=== PATIENT | female | born 1940 | race Caucasian/White ===

== ENCOUNTER 2016-06-23 12:14 | Emergency (ER) | payer MEDICARE, MEDICAID ==
[2016-06-23 12:34] VITALS: BP 153/53
--- NOTE | 2016-06-23 12:40 | ER Document Report ---
ED Medical Screen (RME) - General Stated Complaint: HAND PAIN Notes: 75 yo female c/o bilat hand pain with blisters since this morning. denies any injury. no fever TRAVEL OUTSIDE OF THE [place] IN LAST 30 DAYS: No - Related Data Allergies/Adverse Reactions: lisinopril [Lisinopril] Allergy (Verified 03/23/14 16:49) Penicillins Allergy (Verified 03/23/14 16:49) unknown Past Medical History - Past Medical History Cardiac Medical History: Reports: Hx Hypertension Denies: Hx Atrial Fibrillation, Hx Congestive Heart Failure, Hx Coronary Artery Disease, Hx DVT, Hx Heart Attack, Hx Hypercholesterolemia, Hx Peripheral Vascular Disease, Hx Pulmonary Embolism Pulmonary Medical History: Reports: Hx COPD Denies: Hx Asthma, Hx Bronchitis, Hx Pneumonia Neurological Medical History: Denies: Hx Cerebrovascular Accident, Hx Seizures Malignancy Medical History: Reports: Hx Breast Cancer Musculoskeltal Medical History: Denies Hx Arthritis Psychiatric Medical History: Reports: Hx Depression, Hx Schizophrenia Past Surgical History: Reports: Hx Bowel Surgery - umbilical hernia, Hx Breast Surgery, Hx Herniorrhaphy. Denies: Hx Pacemaker - Immunizations Hx Diphtheria, Pertussis, Tetanus Vaccination: - unknown Physical Exam - Vital signs Vitals: Temp Pulse Resp BP Pulse Ox 98.1 F 60 20 153/53 H 92 06/23/16 12:33 06/23/16 12:06/23/16 12:06/23/16 12:06/23/16 12:33 Course - Vital Signs Vital signs: Temp Pulse Resp BP Pulse Ox 98.1 F 60 20 153/53 H 92 06/23/16 12:33 06/23/16 12:33 06/23/16 12:33 06/23/16 12:33 06/23/16 12:33
--- NOTE | 2016-06-23 14:29 | ER Document Report ---
ED General - General Chief Complaint: Hand Pain Stated Complaint: HAND PAIN Time seen by provider: 14:15 Mode of Arrival: Wheelchair Information source: Patient Notes: 25-year-old female states she's had 2 day history of painful blisters to both hands. She reports she had blisters to the left hand several days ago that she opened and has small amount of bleeding from the. She does not recall any new medicines doesn't recall having symptoms like this before. She denies fever, chills, nausea, vomiting, cough, shortness of breath worse than baseline, or syncope. She reports chronic problems with pain and swelling to both legs which she has wraps in place says she's had no recent problems with those. She does not recall being bitten by anything. Physical Exam: General: Alert, appears well. HEENT: Normocephalic. Atraumatic. PERRLA. Extraocular movements intact. Oropharynx clear. Neck: Supple. Non-tender. No JVD Respiratory: No respiratory distress. Clear and equal breath sounds bilaterally. Cardiovascular: Regular rate and rhythm. Abdominal: Normal Inspection. Soft, non-tender. No distension. Normal Bowel Sounds. Back: Non-tender. No deformity or step off. Extremities: Dry dressing is in place to both legs. Upper extremities are warm with 2+ pulses. She has 3 areas of what appear to be popped blisters with superficial eschar each about 1 cm across the palm of her left hand. She has 1 intact blister with clear fluid to the ulnar side of her left hand. She has 2 blisters each about a centimeter across with clear fluid to the radial and ulnar sides of the right hand. There is an area of faint superficial erythema to the ulnar side of the right wrist. Patient has 2+ radial ulnar pulses to both hands with brisk capillary refill and no cyanosis. She is able to demonstrate good range of motion elbow shoulders and wrists and both upper extremities. Neurological: Mentating clearly answers questions appropriately slightly dysarthric Psychological: Normal affect. Normal Mood. Skin: Warm. Dry. 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 She has scattered areas of erythema with dry eschars in place on the posterior portion of the right shoulder and upper arm in a dermatomal pattern. TRAVEL OUTSIDE OF THE [place] IN LAST 30 DAYS: No - Related Data Allergies/Adverse Reactions: lisinopril [Lisinopril] Allergy (Verified 06/23/16 12:39) Penicillins Allergy (Verified 06/23/16 12:39) unknown Past Medical History - Social History Smoking Status: Never Smoker Chew tobacco use (# tins/day): No Frequency of alcohol use: None Drug Abuse: None Family History: None Patient has suicidal ideation: No Patient has homicidal ideation: No - Past Medical History Cardiac Medical History: Reports: Hx Hypertension Denies: Hx Atrial Fibrillation, Hx Congestive Heart Failure, Hx Coronary Artery Disease, Hx DVT, Hx Heart Attack, Hx Hypercholesterolemia, Hx Peripheral Vascular Disease, Hx Pulmonary Embolism Pulmonary Medical History: Reports: Hx COPD Denies: Hx Asthma, Hx Bronchitis, Hx Pneumonia Neurological Medical History: Denies: Hx Cerebrovascular Accident, Hx Seizures Renal/ Medical History: Denies: Hx Peritoneal Dialysis Malignancy Medical History: Reports: Hx Breast Cancer Musculoskeltal Medical History: Denies Hx Arthritis Psychiatric Medical History: Reports: Hx Depression, Hx Schizophrenia Past Surgical History: Reports: Hx Bowel Surgery - umbilical hernia, Hx Breast Surgery, Hx Herniorrhaphy. Denies: Hx Pacemaker - Immunizations Hx Diphtheria, Pertussis, Tetanus Vaccination: - unknown Review of Systems - Review of Systems Constitutional: denies: Chills, Fever EENT: denies: Ear pain, Throat pain Cardiovascular: denies: Chest pain Respiratory: denies: Cough, Short of breath Gastrointestinal: denies: Abdominal pain, Nausea, Vomiting Genitourinary: denies: Burning, Dysuria Female Genitourinary: Post menopausal Musculoskeletal: denies: Back pain Skin: Rash Hematologic/Lymphatic: denies: Swollen glands Physical Exam - Vital signs Vitals: Temp Pulse Resp BP Pulse Ox 98.1 F 60 20 153/53 H 92 06/23/16 12:33 06/23/16 12:33 06/23/16 12:33 06/23/16 12:33 06/23/16 12:33 Course - Re-evaluation Re-evalutation: 06/23/16 14:29 Lesions the patient's right upper arm I think are suspicious for shingles. The blister seen on both hands are larger than will be customarily C was shingles and I am uncertain as to their etiology but they certainly do not appear to be related to a cellulitis or abscess or any type of vascular compromise. Motor treat patient with valacyclovir and steroid Dosepak for shingles and this may help with the blisters are hand is a related. The steroids certainly might help with this as an unspecified allergic reaction as well. Patient is otherwise nontoxic in appearance I think is safe for discharge and outpatient follow-up 06/23/16 14:34 - Vital Signs Vital signs: Temp Pulse Resp BP Pulse Ox 98.1 F 60 20 153/53 H 92 06/23/16 12:33 06/23/16 12:33 06/23/16 12:33 06/23/16 12:33 06/23/16 12:33 Discharge - Discharge Clinical Impression: Shingles Qualifiers: Herpes zoster complications: without complications Qualified Code(s): B02.9 - Zoster without complications Condition: Stable Disposition: HOME, SELF-CARE Additional Instructions: Shingles You have shingles. Shingles is caused by the chicken pox virus, The virus has been surviving dormant in a nerve cell since you had chicken pox years ago. The virus has spread down a nerve root to reach the skin. Typically, an band-like area of pain and skin sensitivity develops, then small blisters erupt in the area. Shingles lasts two or three weeks, but sometimes leaves persistent pain. You are contagious -- you can give children chicken pox. But you can't give anyone shingles. Antiviral medicines (such as acyclovir or famciclovir) can help, but the rash usually worsens for about a week. Pain medication is often given if the area hurts. Antihistamines such as Benadryl may be necessary for itching if it does not respond to soda baths and calamine lotion. Sometimes cortisone medicine or nerve-block shots are necessary if pain is severe. If the area remains severely painful as the sores heal, or if you suspect an infection developing in the sores, see your doctor. Prescriptions: Methylprednisolone [Medrol Dosepack (4 mg/Tab) 21 Tab/Dosepak] 4 mg PO ASDIR PRN #21 tab.ds.pk PRN Reason: Valacyclovir HCl [Valacyclovir] 1,000 mg PO TID #21 tablet Referrals: SCOUT ODONNELL MD [ACTIVE STAFF] - Follow up in 1 week
== END 2016-06-23 16:40 | disposition home or self-care (01) ==
LOC: ER 12:14
DX: B02.9 Zoster without complications (principal); I10 Essential (primary) hypertension; J44.9 Chronic obstructive pulmonary disease, unspecified; Z85.3 Personal history of malignant neoplasm of breast; Z88.0 Allergy status to penicillin; Z88.8 Allergy status to other drugs, medicaments and biological substances
CPT/HCPCS: 99283

== ENCOUNTER → 2016-11-10 | Outpatient (CLI) | payer MEDICARE, MEDICAID ==
--- NOTE | 2016-11-10 11:05 | WOMENS IMAGING REPORT ---
EXAM DESCRIPTION: BILAT DIAGNOSTIC MAMMO W/CAD COMPLETED DATE/TIME: 11/10/2016 10:34 am REASON FOR STUDY: HX OF BREAST CANCER; Z85.30 Z85.3 PERSONAL HISTORY OF MALIGNANT NEOPLASM OF VINEET T COMPARISON: 12/09/2015. 2010. TECHNIQUE: Bilateral CC views are obtained. Right XCC view is additionally obtained. The patient c ould not tolerate further imaging. LIMITATIONS: Only 3 images obtained, 1 image of the left breast. Very suboptimal evaluation due to patient cooperation issues. Also, the patient presumably has had priors before last year at an [place] institution, but no further information can be obtained at this time. FINDINGS: RIGHT BREAST MASSES: No mass identified. CALCIFICATIONS: Benign calcifications. ARCHITECTURAL DISTORTION: None. DEVELOPING DENSITY: None. ASYMMETRY: None noted. OTHER: No other significant findings. LEFT BREAST MASSES: No mass identified. CALCIFICATIONS: No new or suspicious calcifications. ARCHITECTURAL DISTORTION: Distortion in the deep left central breast at the operative site. Grossly unchanged but incompletely evaluated. DEVELOPING DENSITY: None. ASYMMETRY: None noted. OTHER: No other significant finding. Read with the assistance of CAD: .[facility] - R2 Cenova Version 1.3 .[facility] - R2 Cenova Version 1.3 .[facility] - R2 Cenova Version 2.4 .[facility] - R2 Cenova Version 2.4 .[facility] - R2 Taxicab Driver Version 9.2 IMPRESSION: Imaging is limited due to patient cooperation issues. Only one view of the left breast (the breast with history of malignancy) could be obtained and the operative site is only partially vi sualized. Allowing for this, no gross progression or worrisome findings. BREAST DENSITY: c. The breasts are heterogeneously dense, which may obscure small masses. BIRAD: 2 Benign findings. RECOMMENDATION: RECOMMENDED FOLLOW UP: Patient should still attempt yearly mammographic followup as tolerated. SPECIFIC INTERVENTION/IMAGING/CONSULTATION RECOMMENDED:No additional intervention/ imaging/consultati on needed at this time. COMMUNICATION:No significant abnormalities to discuss with the patient today. COMMENT: The patient has been notified of the results by letter per MQSA requirements. Additional no tification policies are in place for contacting patient with suspicious or incomplete findings. Quality ID #[id number]: The [employer] recommends an annual screening mammogram for women aged 40 years or over. This facility utilizes a reminder system to ensure that all patients receive reminder letters, and/or direct phone calls for appointments. This includes reminders for routine scr eening mammograms, diagnostic mammograms, or other Breast Imaging Interventions when appropriate. Th is patient will be placed in the appropriate reminder system. The [employer] (ACR) has developed recommendations for screening MRI of the breast s in certain patient populations, to be used in conjunction with mammography. Breast MRI surveillanc e may be appropriate for women with more than 20% lifetime risk of developing breast cancer as deter mined by genetic testing, significant family history of the disease, or history of mantle radiation f or Hodgkins Disease. ACR Practice Guidelines 2008. TECHNICAL DOCUMENTATION: FINDING NUMBER: (1) ASSESSMENT: (1) JOB ID: [id number] [employer]- All Rights Reserved
== END ==
LOC: WI 12:20
PROVIDERS: ATTEND Internal Medicine Medical Oncology
DX: N63 Unspecified lump in breast (principal)
CPT/HCPCS: 77066; G0204

== ENCOUNTER → 2017-08-29 | Outpatient (CLI) | payer MEDICARE, MEDICAID ==
--- NOTE | 2017-08-29 16:34 | RADIOLOGY REPORT (SQ) ---
EXAM DESCRIPTION: CT CHEST WITH COMPLETED DATE/TIME: 08/29/2017 3:44 pm REASON FOR STUDY: COUGH C50.919 MALIGNANT NEOPLASM OF UNSP SITE OF UNSPECIFIED FEMAL R05 COUGH COMPARISON: AP chest 03/23/2014 CT abdomen pelvis 02/04/2011 TECHNIQUE: CT scan of the chest performed using helical scanning technique with dynamic intravenous contrast injection. Images reviewed with lung, soft tissue and bone windows. Reconstructed coronal and sagittal MPR images reviewed. All images stored on PACS. All CT scanners at this facility use dose modulation, iterative reconstruction, and/or weight based d osing when appropriate to reduce radiation dose to as low as reasonably achievable (ALARA). [facility]: Dose Right [facility]: CareDose [facility]: Dose Right [facility]: Teradose 4D [facility]: [employer] CONTRAST TYPE AND DOSE: contrast/concentration: Isovue 370.00 mg/ml; Total Contrast Delivered: 80.0 ml; Total Saline Delivered: 50.3 ml RENAL FUNCTION: Creatinine 0.8 RADIATION DOSE: CT Rad equipment meets quality standard of care and radiation dose reduction techniq ues were employed. CTDIvol: 20.1 mGy. DLP: 706 mGy-cm. . LIMITATIONS: None. FINDINGS: LUNGS AND PLEURA: No opacities, nodules, masses. No pneumothorax. No effusions. HILAR AND MEDIASTINAL STRUCTURES: No identified masses or abnormal nodes. HEART AND VASCULAR STRUCTURES: No aneurysm or dissection. No central pulmonary emboli. No pericardi al effusion. Occluded proximal left subclavian artery, best shown on axial image 13. HARDWARE: None in the chest. UPPER ABDOMEN: No significant findings. Limited exam. THYROID AND OTHER SOFT TISSUES: No masses. No adenopathy. BONES: No significant finding. OTHER: No other significant finding. IMPRESSION: No CT findings to explain history of cough. Occluded proximal left subclavian artery TECHNICAL DOCUMENTATION: JOB ID: [id number] Quality ID # [id number]: Final reports with documentation of one or more dose reduction techniques (e.g., Au tomated exposure control, adjustment of the mA and/or kV according to patient size, use of iterative reconstruction technique) 2010 [employer]- All Rights Reserved Reading location - IP/workstation name: [email or web address]
== END ==
LOC: RAD 13:25
PROVIDERS: ATTEND Internal Medicine
DX: C50.919 Malignant neoplasm of unspecified site of unspecified female breast (principal); R05 Cough
CPT/HCPCS: 71260; 82565

== ENCOUNTER 2017-09-10 16:30 | Emergency (ER) | payer MEDICARE, MEDICAID ==
[2017-09-10] MEDS ORDERED: CLINDAMYCIN 600 MG/D5W RTU 600 MG/50 ML RTUPB IV ONE (18:16)
[2017-09-10 18:54] LABS: ABSOLUTE BASOPHILS # (AUTO) 0.1 10^3/uL (0.0-0.2); ABSOLUTE EOSINOPHILS # (AUTO) 0.7 10^3/uL (0.0-0.6); ABSOLUTE LYMPHOCYTES (AUTO) 1.5 10^3/uL (0.5-4.7); ABSOLUTE MONOCYTES (AUTO) 0.6 10^3/uL (0.1-1.4); ABSOLUTE NEUT (AUTO) 7.7 10^3/uL (1.7-8.2); BASOPHILS % (AUTO) 0.7 % (0-2); EOSINOPHILS % (AUTO) 6.6 % (0-6); HEMOGLOBIN 12.4 g/dL (12.0-15.5); LYMPHOCYTES % (AUTO) 13.7 % (13-45); MEAN CORPUSCULAR HEMOGLOBIN 27.3 pg (27.0-33.4); MEAN CORPUSCULAR HGB CONC 32.7 g/dL (32.0-36.0); MEAN CORPUSCULAR VOLUME 84 fl (80-97); MONOCYTES % (AUTO) 5.7 % (3-13); PLATELET COUNT 252 10^3/uL (150-450); RED BLOOD COUNT 4.55 10^6/uL (3.72-5.28); RED CELL DISTRIBUTION WIDTH 16.9 % (11.5-14.0); SEGMENTED NEUTROPHILS % (AUTO) 73.3 % (42-78); TOTAL CELLS COUNTED % (AUTO) 100 %; WHITE BLOOD COUNT 10.6 10^3/uL (4.0-10.5)
[2017-09-10 18:55] LABS: VENOUS BLOOD BASE EXCESS 5.9 mmol/L; VENOUS BLOOD HCO3 33.4 mmol/L (20-32); VENOUS BLOOD PCO2 61.6 mmHg (35-63); VENOUS BLOOD PH 7.35 (7.30-7.42)
[2017-09-10 19:19] LABS: ALANINE AMINOTRANSFERASE 28 U/L (9-52); ALBUMIN 3.9 g/dL (3.5-5.0); ALKALINE PHOSPHATASE 99 U/L (38-126); ANION GAP 8 (5-19); ASPARTATE AMINO TRANSFERASE 42 U/L (14-36); BILIRUBIN,DIRECT 0.4 mg/dL (0.0-0.4); BILIRUBIN,TOTAL 0.5 mg/dL (0.2-1.3); BLOOD UREA NITROGEN 17 mg/dL (7-20); C-REACTIVE PROTEIN 37.5 mg/L (<10.0); CALCIUM 9.3 mg/dL (8.4-10.2); CARBON DIOXIDE 33 mmol/L (22-30); CHLORIDE 99 mmol/L (98-107); CREATINE KINASE 21 U/L (30-135); GLUCOSE 112 mg/dL (75-110); TOTAL PROTEIN 7.6 g/dL (6.3-8.2)
--- NOTE | 2017-09-10 19:35 | RADIOLOGY REPORT (SQ) ---
EXAM DESCRIPTION: FOOT BILATERAL 3 VIEWS COMPLETED DATE/TIME: 09/10/2017 7:16 pm REASON FOR STUDY: blisters, possible necrotizing fasciitis COMPARISON: None. NUMBER OF VIEWS: Three views. TECHNIQUE: AP, lateral and oblique radiographic images acquired of the right and left foot. LIMITATIONS: Nonstandard radiographic positioning no soft tissue gas FINDINGS: MINERALIZATION: Diffuse osteopenia BONES: No acute fracture or dislocation. No worrisome bone lesions. JOINTS: No effusions. SOFT TISSUES: No soft tissue swelling. No foreign body. OTHER: No other significant finding. IMPRESSION: No soft tissue gas. No aggressive bony demineralization worrisome for osteomyelitis. No acute fracture TECHNICAL DOCUMENTATION: JOB ID: [id number] [employer]- All Rights Reserved Reading location - IP/workstation name: [email or web address]
--- NOTE | 2017-09-10 19:51 | ER Document Report ---
ED Extremity Problem, Lower - General Chief Complaint: Foot Pain Stated Complaint: FOOT PAIN Time Seen by Provider: 09/10/17 18:14 Notes: The patient is a 76-year-old female, past medical history CHF, presents from [facility] after her primary care physician, Dr. Toro, noticed acute onset of bilateral foot blisters worsening today. She was sent to the ER for further evaluation and treatment. Patient is having bilateral foot pain, but denies fevers, injury, numbness, tingling, drainage from the wound or any other wounds. TRAVEL OUTSIDE OF THE [place] IN LAST 30 DAYS: No - Related Data Allergies/Adverse Reactions: lisinopril [Lisinopril] Allergy (Verified 06/23/16 12:39) Penicillins Allergy (Verified 06/23/16 12:39) unknown Past Medical History - General Information source: Patient - Social History Smoking Status: Unknown if Ever Smoked Family History: None Patient has suicidal ideation: No Patient has homicidal ideation: No - Past Medical History Cardiac Medical History: Reports: Hx Hypertension Denies: Hx Atrial Fibrillation, Hx Congestive Heart Failure, Hx Coronary Artery Disease, Hx DVT, Hx Heart Attack, Hx Hypercholesterolemia, Hx Peripheral Vascular Disease, Hx Pulmonary Embolism Pulmonary Medical History: Reports: Hx COPD Denies: Hx Asthma, Hx Bronchitis, Hx Pneumonia Neurological Medical History: Denies: Hx Cerebrovascular Accident, Hx Seizures Renal/ Medical History: Denies: Hx Peritoneal Dialysis Malignancy Medical History: Reports: Hx Breast Cancer Musculoskeltal Medical History: Denies Hx Arthritis Psychiatric Medical History: Reports: Hx Depression, Hx Schizophrenia Past Surgical History: Reports: Hx Bowel Surgery - umbilical hernia, Hx Breast Surgery, Hx Herniorrhaphy. Denies: Hx Pacemaker - Immunizations Hx Diphtheria, Pertussis, Tetanus Vaccination: - unknown Review of Systems - Review of Systems Notes: REVIEW OF SYSTEMS: CONSTITUTIONAL: -fevers, -chills EENT: -eye pain, -difficulty swallowing, -nasal congestion CARDIOVASCULAR: -chest pain, -syncope. RESPIRATORY: -cough, -SOB GASTROINTESTINAL: -abdominal pain, -nausea, -vomiting, -diarrhea GENITOURINARY: -dysuria, -hematuria MUSCULOSKELETAL: -back pain, -neck pain SKIN: +B/L foot pain and blisters HEMATOLOGIC: -easy bruising or bleeding. LYMPHATIC: -swollen, enlarged glands. NEUROLOGICAL: -altered mental status or loss of consciousness, -headache, - neurologic symptoms PSYCHIATRIC: -anxiety, -depression. ALL OTHER SYSTEMS REVIEWED AND NEGATIVE. Physical Exam - Vital signs Vitals: Pulse Ox 94 09/10/17 17:02 - Notes Notes: PHYSICAL EXAMINATION: GENERAL: Well-appearing, well-nourished and in no acute distress. HEAD: Atraumatic, normocephalic. EYES: Pupils equal round and reactive to light, extraocular movements intact, sclera anicteric, conjunctiva are normal. ENT: nares patent, oropharynx clear without exudates. Moist mucous membranes. NECK: Normal range of motion, supple without lymphadenopathy LUNGS: Breath sounds clear to auscultation bilaterally and equal. No wheezes rales or rhonchi. HEART: Regular rate and rhythm without murmurs ABDOMEN: Soft, nontender, normoactive bowel sounds. No guarding, no rebound. No masses appreciated. EXTREMITIES: Strong distal pulses. NEUROLOGICAL: Cranial nerves grossly intact. Normal speech, normal gait. Normal sensory and motor exams. PSYCH: Normal mood, normal affect. SKIN: 3 cm multiple bullae over B/L lateral feet and in between right 2nd and 3rd toes. No surrounding erythema. Course - Re-evaluation Re-evalutation: Concern for necrotizing fasciitis with acute onset of bilateral foot blisters and pain that are worsening over the day. Clindamycin started in the ED due to concern. X-ray of feet do not show any soft tissue gas. Her LRINEC score is 4. 09/10/17 20:[address] Suárez. Recommending CT of the feet to assess for nec. fasc. 09/10/17 21:06 CT scan does not show any evidence of soft tissue air or infection. Patient instructed to follow-up with podiatry for further evaluation and treatment. - Vital Signs Vital signs: Temp Pulse Resp BP Pulse Ox 17 163/61 H 95 09/10/17 22:56 09/10/17 22:56 09/10/17 22:56 - Laboratory Result Diagrams: 09/10/17 18:29 09/10/17 18:29 Laboratory results interpreted by me: 09/10/17 09/10/17 09/10/17 18:29 18:29 18:29 WBC 10.6 H RDW 16.9 H Eosinophils % 6.6 H Absolute Eosinophils 0.7 H VBG HCO3 33.4 H Carbon Dioxide 33 H Glucose 112 H AST 42 H Creatine Kinase 21 L C-Reactive Protein 37.5 H - Diagnostic Test Radiology reviewed: Image reviewed, Reports reviewed Radiology results interpreted by me: B/L foot x-ray: No soft tissue gas. No aggressive bony demineralization worrisome for osteomyelitis. No acute fracture. Discharge - Discharge Clinical Impression: Blister of foot without infection Qualifiers: Encounter type: initial encounter Laterality: unspecified laterality Qualified Code(s): S90.829A - Blister (nonthermal), unspecified foot, initial encounter Condition: Stable Disposition: HOME, SELF-CARE Additional Instructions: There is no evidence of a soft tissue foot infection on your workup today. Follow-up with the foot doctor for further evaluation and treatment. Forms: Elevated Blood Pressure Referrals: SOLE HERRERA DPM [ACTIVE STAFF] - Follow up as needed
--- NOTE | 2017-09-10 21:02 | RADIOLOGY REPORT (SQ) ---
EXAM DESCRIPTION: CT LEFT LOWER EXTREMITY WITH; CT RT LOWER EXTREMITY WITH COMPLETED DATE/TIME: 09/10/2017 8:49 pm; 09/10/2017 8:50 pm REASON FOR STUDY: acute multiple foot blisters, concern for nec fasc COMPARISON: Right and left foot plain films 09/10/2017 TECHNIQUE: Axial imaging performed through the right and left foot and ankle with reformatted lr l and sagittal imaging windowed for bone and soft tissues. Images saved to PACS. 3D IMAGING: Were 3D images as MIP, SSD, or volume rendering performed at the work station? No All CT scanners at this facility use dose modulation, iterative reconstruction, and/or weight based d osing when appropriate to reduce radiation dose to as low as reasonably achievable (ALARA). [facility]: Dose Right [facility]: CareDose [facility]: Dose Right [facility]: Teradose 4D [facility]: [employer] LIMITATIONS: Right toes are cropped out of the field of view. Nonstandard radiographic positioning. RADIATION DOSE: 7.5 mGy. FINDINGS: SOFT TISSUES: Bilateral blisters over the 5th toes. Diffuse subcutaneous edema over the r ight and left lower leg and dorsal right and dorsal left foot. No soft tissue gas. BONES: No acute fracture. No dislocation. MINERALIZATION: Diffuse osteopenia OTHER: No other significant finding. IMPRESSION: Subcutaneous edema and skin blisters. No soft tissue air/gas. No acute fracture TECHNICAL DOCUMENTATION: JOB ID: [id number] Quality ID # [id number]: Final reports with documentation of one or more dose reduction techniques (e.g., Au tomated exposure control, adjustment of the mA and/or kV according to patient size, use of iterative reconstruction technique) 2010 [employer]- All Rights Reserved Reading location - IP/workstation name: [email or web address]
[2017-09-11 02:54] VITALS: BP 157/92
== END 2017-09-10 23:40 | disposition home or self-care (01) ==
LOC: ER 16:30
DX: S90.821A Blister (nonthermal), right foot, initial encounter (principal); S90.822A Blister (nonthermal), left foot, initial encounter; M79.671 Pain in right foot; M79.672 Pain in left foot; X58.XXXA Exposure to other specified factors, initial encounter; I10 Essential (primary) hypertension; J44.9 Chronic obstructive pulmonary disease, unspecified; Z88.0 Allergy status to penicillin; Z85.3 Personal history of malignant neoplasm of breast
CPT/HCPCS: 36415; 80053; 82550; 82803; 83605; 85025; 86140; 87040; 96365; 99284

== ENCOUNTER 2017-09-18 10:16 | Inpatient (IN) | payer MEDICARE, MEDICAID ==
--- NOTE | 2017-09-18 10:24 | ER Document Report ---
ED Extremity Problem, Lower - General Chief Complaint: Foot Pain Stated Complaint: FOOT PAIN Time Seen by Provider: 09/18/17 10:21 Notes: The patient is a 76-year-old female who presents with 5 days of blisters to bilateral feet. She was seen 10 days ago for this same issue and a CT scan did not show any free air and ruled out necrotizing fasciitis. She takes Eliquis daily. Patient is on doxycycline, but her blisters have worsened and she has worsening redness of her leg. She denies fevers, injury, numbness, tingling, history diabetes, drainage from the wounds or any other wounds. TRAVEL OUTSIDE OF THE [place] IN LAST 30 DAYS: No - Related Data Allergies/Adverse Reactions: lisinopril [Lisinopril] Allergy (Verified 06/23/16 12:39) Penicillins Allergy (Verified 06/23/16 12:39) unknown Past Medical History - General Information source: Patient - Social History Smoking Status: Unknown if Ever Smoked Family History: None - Past Medical History Cardiac Medical History: Reports: Hx Hypertension Denies: Hx Atrial Fibrillation, Hx Congestive Heart Failure, Hx Coronary Artery Disease, Hx DVT, Hx Heart Attack, Hx Hypercholesterolemia, Hx Peripheral Vascular Disease, Hx Pulmonary Embolism Pulmonary Medical History: Reports: Hx COPD Denies: Hx Asthma, Hx Bronchitis, Hx Pneumonia Neurological Medical History: Denies: Hx Cerebrovascular Accident, Hx Seizures Renal/ Medical History: Denies: Hx Peritoneal Dialysis Malignancy Medical History: Reports: Hx Breast Cancer Musculoskeltal Medical History: Denies Hx Arthritis Psychiatric Medical History: Reports: Hx Depression, Hx Schizophrenia Past Surgical History: Reports: Hx Bowel Surgery - umbilical hernia, Hx Breast Surgery, Hx Herniorrhaphy. Denies: Hx Pacemaker - Immunizations Hx Diphtheria, Pertussis, Tetanus Vaccination: - unknown Review of Systems - Review of Systems Notes: REVIEW OF SYSTEMS: CONSTITUTIONAL: -fevers, -chills EENT: -eye pain, -difficulty swallowing, -nasal congestion CARDIOVASCULAR: -chest pain, -syncope. RESPIRATORY: -cough, -SOB GASTROINTESTINAL: -abdominal pain, -nausea, -vomiting, -diarrhea GENITOURINARY: -dysuria, -hematuria MUSCULOSKELETAL: +foot blisters, -back pain, -neck pain SKIN: +B/L lower extremity redness HEMATOLOGIC: -easy bruising or bleeding. LYMPHATIC: -swollen, enlarged glands. NEUROLOGICAL: -altered mental status or loss of consciousness, -headache, - neurologic symptoms PSYCHIATRIC: -anxiety, -depression. ALL OTHER SYSTEMS REVIEWED AND NEGATIVE. Physical Exam - Vital signs Vitals: Temp Pulse Resp BP Pulse Ox 97.8 F 64 24 H 166/46 H 100 09/18/17 10:09/18/17 10:09/18/17 10:09/18/17 10:09/18/17 10:25 - Notes Notes: PHYSICAL EXAMINATION: GENERAL: Well-appearing, well-nourished and in no acute distress. HEAD: Atraumatic, normocephalic. EYES: Pupils equal round and reactive to light, extraocular movements intact, sclera anicteric, conjunctiva are normal. ENT: nares patent, oropharynx clear without exudates. Moist mucous membranes. NECK: Normal range of motion, supple without lymphadenopathy LUNGS: Breath sounds clear to auscultation bilaterally and equal. No wheezes rales or rhonchi. HEART: Regular rate and rhythm without murmurs ABDOMEN: Soft, nontender, normoactive bowel sounds. No guarding, no rebound. No masses appreciated. EXTREMITIES: Multiple blood-blisters on feet, erythema up to mid-hilario bilaterally. No crepitus. NEUROLOGICAL: Cranial nerves grossly intact. Normal speech, normal gait. Normal sensory and motor exams. PSYCH: Normal mood, normal affect. Course - Re-evaluation Re-evalutation: Patient with worsening blisters and lower extremity cellulitis since her ED evaluation 8 days ago. Spoke to Dr. Villagran and he will debride patient's blisters at bedside. Clindamycin started due to worsening lower extremity cellulitis. No crepitus on exam to suggest necrotizing fasciitis and symptoms ongoing for the past 8 days. Due to failure of outpatient therapy, patient requires admission for IV Abx and further monitoring. Patient is a patient of Dr. Toro. Dr. Peña is operational meteorologist for his patients. 09/18/17 11:[address] Peña and will admit patient to inpatient telemetry for further evaluation and treatment. - Vital Signs Vital signs: Temp Pulse Resp BP Pulse Ox 97.8 F 64 24 H 166/46 H 100 09/18/17 10:25 09/18/17 10:09/18/17 10:09/18/17 10:25 09/18/17 10:25 - Laboratory Result Diagrams: 09/18/17 11:00 09/18/17 11:00 Laboratory results interpreted by me: 09/18/17 09/18/17 11:00 11:00 WBC 13.3 H MCH 26.8 L MCHC 31.9 L RDW 16.5 H Lymphocytes % 11.5 L Eosinophils % 7.8 H Absolute Neutrophils 9.8 H Absolute Eosinophils 1.0 H ESR 54 H Carbon Dioxide 33 H BUN 30 H Glucose 129 H Creatine Kinase < 20 L C-Reactive Protein 28.4 H Discharge - Discharge Clinical Impression: Blisters of multiple sites Cellulitis Qualifiers: Site of cellulitis: extremity Site of cellulitis of extremity: lower extremity Laterality: unspecified laterality Qualified Code(s): L03.119 - Cellulitis of unspecified part of limb Condition: Stable Disposition: ADMITTED INPATIENT Admitting Provider: Peña Unit Admitted: Telemetry
[2017-09-18] MEDS ORDERED: HYDROMORPHONE HCL INJ/PF 2 MG/ML AMPULE IV ONE (11:00)
[2017-09-18] MEDS ORDERED: CLINDAMYCIN 600 MG/D5W RTU 600 MG/50 ML RTUPB IV ONE (11:00)
[2017-09-18] MEDS ORDERED: KETOROLAC TROMETHAMINE INJ/PF 30 MG/1 ML SDV IV ONE (11:00)
[2017-09-18 11:33] LABS: ABSOLUTE BASOPHILS # (AUTO) 0.1 10^3/uL (0.0-0.2); ABSOLUTE LYMPHOCYTES (AUTO) 1.5 10^3/uL (0.5-4.7); ABSOLUTE MONOCYTES (AUTO) 0.9 10^3/uL (0.1-1.4); ABSOLUTE NEUT (AUTO) 9.8 10^3/uL (1.7-8.2); BASOPHILS % (AUTO) 0.4 % (0-2); EOSINOPHILS % (AUTO) 7.8 % (0-6); HEMATOCRIT 41.8 % (36.0-47.0); HEMOGLOBIN 13.3 g/dL (12.0-15.5); LYMPHOCYTES % (AUTO) 11.5 % (13-45); MEAN CORPUSCULAR HEMOGLOBIN 26.8 pg (27.0-33.4); MEAN CORPUSCULAR HGB CONC 31.9 g/dL (32.0-36.0); MEAN CORPUSCULAR VOLUME 84 fl (80-97); MONOCYTES % (AUTO) 6.6 % (3-13); PLATELET COUNT 276 10^3/uL (150-450); RED BLOOD COUNT 4.97 10^6/uL (3.72-5.28); RED CELL DISTRIBUTION WIDTH 16.5 % (11.5-14.0); SEGMENTED NEUTROPHILS % (AUTO) 73.7 % (42-78); TOTAL CELLS COUNTED % (AUTO) 100 %; WHITE BLOOD COUNT 13.3 10^3/uL (4.0-10.5)
[2017-09-18 11:46] LABS: ALANINE AMINOTRANSFERASE 26 U/L (9-52); ALKALINE PHOSPHATASE 98 U/L (38-126); ANION GAP 12 (5-19); ASPARTATE AMINO TRANSFERASE 24 U/L (14-36); BILIRUBIN,DIRECT 0.3 mg/dL (0.0-0.4); BILIRUBIN,TOTAL 0.3 mg/dL (0.2-1.3); BLOOD UREA NITROGEN 30 mg/dL (7-20); C-REACTIVE PROTEIN 28.4 mg/L (<10.0); CALCIUM 9.8 mg/dL (8.4-10.2); CARBON DIOXIDE 33 mmol/L (22-30); CHLORIDE 100 mmol/L (98-107); GLUCOSE 129 mg/dL (75-110); POTASSIUM 3.7 mmol/L (3.6-5.0); SODIUM 144.7 mmol/L (137-145); TOTAL PROTEIN 7.6 g/dL (6.3-8.2)
[2017-09-18 11:47] LABS: CREATINE KINASE < 20 U/L (30-135)
[2017-09-18] MEDS ORDERED: MIDAZOLAM 2 MG/2 ML INJ IV ONE ×2 (11:50→13:06)
[2017-09-18] MEDS ORDERED: MIDAZOLAM 2 MG/2 ML INJ ONE (11:50)
[2017-09-18] MEDS ORDERED: LIDOCAINE 1% INJ-PF (10 MG/ML) 30 ML SDV ONE (12:05)
[2017-09-18] MEDS ORDERED: LIDOCAINE 1% INJ-PF (10 MG/ML) 30 ML SDV INJ ONE (12:06)
[2017-09-18 12:13] LABS: ERYTHROCYTE SEDIMENTATION RATE 54 mm/hr (0-30)
--- NOTE | 2017-09-18 12:40 | Operative Report ---
Operative Report DATE OF SURGERY: 09/18/17 PREOPERATIVE DIAGNOSIS: 1. Pressure related blisters of the feet bilaterally. 2. Chronic onychomycoses of the toes. 3. Eliquis anticoagulation therapy POSTOPERATIVE DIAGNOSIS: Same OPERATION: Excisional debridement of multiple blisters or bulla of the feet bilaterally, washing and dressing of feet SURGEON: ASHYLN MILLER ANESTHESIA: Moderate Sedation TISSUE REMOVED OR ALTERED: skin COMPLICATIONS: None ESTIMATED BLOOD LOSS: Scant INTRAOPERATIVE FINDINGS: See below PROCEDURE: The [facility] is [facility] 1 week complaining of the pain. Patient was seen by the emergency department staff found to have lower extremity cellulitis of the shins bilaterally, and enlarging bullae of the feet involving the plantar surfaces, and surface of the great toes. Surgery was consulted. Patient was advised admission to the medical service with consulting for local wound care of the feet. We elected to proceed with conscious sedation. The patient is cognitively impaired therefore cannot provide informed consent. We deemed that procedure performed in an emergent fashion, even its low level of complexity. Timeout conducted. Feet were prepped with Betadine, appropriate level of conscious sedation with Versed, 4 mg given IV over the duration of the procedure. All nonviable blisters debrided sharply with tenotomy scissors and # 10 blade. This covered the surface area of approximately 1% of the patient's body surface area. Some dry eschar on the dorsum of the right foot and the dorsal surfaces of several of the right toes. All washed with soapy water saline then Xeroform 4 x 4's Kerlix applied. Patient tolerated procedure well. Recommendations: 1. Patient admitted to the medicine service for intravenous antibiotics and leg elevation 2. Orders will be divided for local wound feet 3. Patient needs a podiatry evaluation upon discharge
[2017-09-18] MEDS: IPRATROPIUM/ALBUTEROL 0.5-2.5 MG/3 ML AMPUL NEB SCH ×2 (14:24→20:04)
[2017-09-18] MEDS ORDERED: LEVOCETIRIZINE DIHYDROCHLORIDE 2.5 MG PO PRN (15:22)
[2017-09-18] MEDS ORDERED: CETIRIZINE 5 MG TABLET PO PRN (15:31)
[2017-09-18] MEDS: FUROSEMIDE 40 MG TABLET PO SCH (16:09)
[2017-09-18] MEDS: OLOPATADINE HCL 0.1% OPH SOLN 5 ML OU SCH (16:10)
[2017-09-18] MEDS: BUDESONIDE/FORMOTEROL 160-4.5 MCG 60 PUFF/6 GM MDI IH SCH (16:11)
[2017-09-18] MEDS: CLINDAMYCIN 600 MG/D5W RTU 600 MG/50 ML RTUPB IV SCH (17:33)
--- NOTE | 2017-09-18 18:35 | PROGRESS NOTE E ---
Progress Note NAME: GIO DONNELLY : 1940 AGE: 76Y DATE: 09/18/2017 ROOM: 422 CHIEF COMPLAINT: Foot pain. SUBJECTIVE: This is a 76-year-old female who [facility] Patient has a 5-day history of blisters on bilateral feet. She was seen 10 days ago for the same issue, and CT scan did not show any free air and ruled out necrotizing fasciitis. She takes Eliquis daily, not sure why. Patient was started on doxycycline, but the blisters have been worsening. She has worsening redness on her legs. Patient denied any fever. No chills, no tingling. Patient denied any history of diabetes. Patient, at this point, was seen by General Surgery, Dr. Loya, and underwent debridement of the patient's blisters, and the patient was given clindamycin. Patient, when I saw her on the floor, denied any chest pain. Denied any shortness of breath. Patient denied any known heart failure, but patient has a history of heart failure, I believe. PAST MEDICAL HISTORY: As per her knowledge, history of hypertension, history of hyperlipidemia, history of congestive heart failure. Not sure why she is taking the Eliquis. History of breast cancer. History of COPD. Patient denied history of any strokes. Patient has history of arthritis, history of depression, history of schizophrenia. PAST SURGICAL HISTORY: History of bowel surgery, history of umbilical hernia repair, history of breast surgery, history of herniorrhaphy. Denied history of pacemaker. REVIEW OF SYSTEMS: As above, all other systems negative. CURRENT MEDICATIONS: 1. Zyrtec 2.5 mg daily. 2. Apixaban 5 mg twice a day. 3. Aspirin 81 mg p.o. daily. 4. Zoloft 100 mg p.o. daily. 5. Fioricet 40 mg twice daily. 6. Potassium 40 mg p.o. daily. 7. Eyedrops daily. 8. Symbicort 2 puffs twice daily. 9. Timolol eyedrops daily. 10. Multivitamin daily. 11. Patient received clindamycin in the ER. OBJECTIVE: VITAL SIGNS: Blood pressure was 134/63, temperature was 97.4, pulse was 57, respirations were 14, O2 sat was 95% on room air. GENERAL: Patient is alert, awake, oriented x3. There was not any acute distress, but patient is kind of very slow, and I am not sure about underlying dementia. HEAD AND NECK: Normocephalic. CINDY. LUNGS: No wheezing, no rales, no rhonchi. HEART: S1, S2 are present. ABDOMEN: Soft. Bowel sounds are present. EXTREMITIES: There is some mild edema and multiple blood blisters on the feet. Edema up to the mid shins bilaterally. No crepitus. Patient currently has a dressing that was put on after the blisters were debrided. NEUROLOGIC: Patient moves all 4 extremities. No focal neurologic signs. LABORATORY DATA: WBC 13.3, hemoglobin is 13.2, hematocrit is 27.6. Sodium is 144, potassium is 3.7, BUN is 30, creatinine is 0.75. AST and ALT are within normal limits. ASSESSMENT: 1. BILATERAL LEG CELLULITIS. Failure of outpatient therapy. 2. HYPERTENSION. 3. CONGESTIVE HEART FAILURE. 4. HYPERLIPIDEMIA. 5. MORBID OBESITY. PLAN: At this point, admit the patient to the medical floor. Start the patient on IV clindamycin. Follow with General Surgery. I also believe patient may have an occluded proximal left subclavian artery on report from 08/29/2017, and I believe that is the reason probably the patient is taking the Eliquis. Patient is otherwise to continue the current medications. Continue to monitor the patient. More then 30 minutes were spent examining the patient and reviewing the records. DICTATING PHYSICIAN: JUAN SCHNEIDER M.D. [id number] Anthony#: [id number] ID: [id number] JOB#: [id number] ACCT: [id number] cc: >
[2017-09-18] MEDS: APIXABAN 5 MG TABLET PO SCH (19:50)
[2017-09-18] MEDS: ATORVASTATIN CALCIUM 10 MG TABLET PO SCH (21:44)
[2017-09-18] MEDS: FAMOTIDINE 20 MG TABLET PO SCH (21:45)
[2017-09-18] MEDS: ACETAMINOPHEN 325 MG TABLET PO PRN (21:45)
[2017-09-18] MEDS ORDERED: TIMOLOL MALEATE PO SCH (22:00)
[2017-09-19] MEDS ORDERED: IBUPROFEN 600 MG TABLET PO PRN (00:18)
[2017-09-19] MEDS ORDERED: NYSTATIN TOPICAL POWDER 15 GM TP PRN (00:50)
[2017-09-19] MEDS: CLINDAMYCIN 600 MG/D5W RTU 600 MG/50 ML RTUPB IV SCH ×3 (02:08→18:37)
[2017-09-19] MEDS: LANSOPRAZOLE 15 MG TAB.RAP.DR PO SCH (05:03)
[2017-09-19] MEDS ORDERED: NYSTATIN OINTMENT 15 GM TUBE ONE (06:23)
[2017-09-19] MEDS: IPRATROPIUM/ALBUTEROL 0.5-2.5 MG/3 ML AMPUL NEB SCH ×3 (08:38→20:01)
[2017-09-19] MEDS: ACETAMINOPHEN 325 MG TABLET PO PRN (08:50)
[2017-09-19] MEDS: OLOPATADINE HCL 0.1% OPH SOLN 5 ML OU SCH ×2 (08:51→16:36)
[2017-09-19] MEDS: APIXABAN 5 MG TABLET PO SCH ×2 (08:52→22:10)
[2017-09-19] MEDS ORDERED: (PENDING PHARMACY ID) (Potassium Chloride [Klor-Con M20] 40 MEQ) PO SCH (10:00)
[2017-09-19] MEDS ORDERED: POTASSIUM CHLORIDE 10 MEQ TABLET.SA PO SCH (10:00)
[2017-09-19] MEDS ORDERED: ENOXAPARIN SODIUM INJ 40 MG/0.4 ML DISP.SYRIN SUBCUT SCH (10:00)
[2017-09-19] MEDS: POLYETHYLENE GLYCOL 3350 POWDER 17 GM/1 PACKET PO SCH (10:48)
[2017-09-19] MEDS: FUROSEMIDE 40 MG TABLET PO SCH ×2 (10:49→16:36)
[2017-09-19] MEDS: FAMOTIDINE 20 MG TABLET PO SCH ×2 (10:49→22:10)
[2017-09-19] MEDS: SERTRALINE HCL 50 MG TABLET PO SCH (10:50)
[2017-09-19] MEDS: MULTIVITAMIN TABLET PO SCH (10:50)
[2017-09-19] MEDS: ASPIRIN 81 MG TABLET, CHEWABLE PO SCH (10:50)
[2017-09-19] MEDS: DOCUSATE SODIUM 100 MG CAPSULE PO SCH (10:53)
[2017-09-19] MEDS: BUDESONIDE/FORMOTEROL 160-4.5 MCG 60 PUFF/6 GM MDI IH SCH ×2 (10:54→16:36)
[2017-09-19] MEDS: CHOLECALCIFEROL (D3) 400 UNIT TABLET PO SCH (10:54)
[2017-09-19] MEDS: NYSTATIN CREAM 15 GM TP PRN ×3 (11:09→18:38)
--- NOTE | 2017-09-19 21:56 | PDOC PROGRESS REPORT ---
Subjective Progress Note for:: 09/19/17 Subjective:: She was admitted for the management of severe blistering cellulitis of the soles of the feet. She had a history of right subclavian thrombosis on anticoagulant Eliquis Reason For Visit: CELLULITIS Physical Exam Vital Signs: Temp Pulse Resp BP Pulse Ox 97.3 F 62 20 150/62 H 98 09/19/17 15:55 09/19/17 15:55 09/19/17 15:55 09/19/17 15:55 09/19/17 15:55 Intake & Output 09/18/17 09/19/17 09/20/17 06:59 06:59 06:59 Intake Total 642 360 Output Total 0 Balance 642 360 Weight 96.7 kg General appearance: PRESENT: no acute distress Eye exam: PRESENT: PERRLA Respiratory exam: PRESENT: clear to auscultation jacinto Cardiovascular exam: PRESENT: +S1, +S2 GI/Abdominal exam: PRESENT: soft Extremities exam: PRESENT: other - Cellulitis of both feet Neurological exam: PRESENT: alert Assessment & Plan - Diagnosis (1) Cellulitis of both feet Is this a current diagnosis for this admission?: Yes Plan: Continue IV antibiotic, she is status post debridement (2) Occlusion of right subclavian artery Is this a current diagnosis for this admission?: Yes Plan: Continue Eliquis (3) Blisters of multiple sites Is this a current diagnosis for this admission?: Yes
[2017-09-19] MEDS: ATORVASTATIN CALCIUM 10 MG TABLET PO SCH (22:10)
[2017-09-20] MEDS: OXYCODONE-ACETAMINOPHEN 5-325 MG TABLET PO PRN ×3 (02:07→18:00)
[2017-09-20] MEDS: CLINDAMYCIN 600 MG/D5W RTU 600 MG/50 ML RTUPB IV SCH ×3 (02:08→18:02)
[2017-09-20] MEDS: LANSOPRAZOLE 15 MG TAB.RAP.DR PO SCH (05:37)
[2017-09-20 06:19] LABS: ABSOLUTE BASOPHILS # (AUTO) 0.1 10^3/uL (0.0-0.2); ABSOLUTE LYMPHOCYTES (AUTO) 1.8 10^3/uL (0.5-4.7); ABSOLUTE MONOCYTES (AUTO) 0.7 10^3/uL (0.1-1.4); BASOPHILS % (AUTO) 0.3 % (0-2); EOSINOPHILS % (AUTO) 6.9 % (0-6); HEMOGLOBIN 12.6 g/dL (12.0-15.5); LYMPHOCYTES % (AUTO) 12.3 % (13-45); MEAN CORPUSCULAR HGB CONC 32.2 g/dL (32.0-36.0); MEAN CORPUSCULAR VOLUME 84 fl (80-97); MONOCYTES % (AUTO) 5.1 % (3-13); PLATELET COUNT 246 10^3/uL (150-450); RED BLOOD COUNT 4.67 10^6/uL (3.72-5.28); RED CELL DISTRIBUTION WIDTH 16.6 % (11.5-14.0); SEGMENTED NEUTROPHILS % (AUTO) 75.4 % (42-78); TOTAL CELLS COUNTED % (AUTO) 100 %; WHITE BLOOD COUNT 14.6 10^3/uL (4.0-10.5)
[2017-09-20 06:44] LABS: ANION GAP 17 (5-19); BLOOD UREA NITROGEN 41 mg/dL (7-20); CARBON DIOXIDE 26 mmol/L (22-30); CHLORIDE 100 mmol/L (98-107); GLUCOSE 133 mg/dL (75-110); POTASSIUM 3.7 mmol/L (3.6-5.0); SODIUM 142.7 mmol/L (137-145)
[2017-09-20] MEDS: IPRATROPIUM/ALBUTEROL 0.5-2.5 MG/3 ML AMPUL NEB SCH ×3 (09:25→20:37)
[2017-09-20] MEDS: APIXABAN 5 MG TABLET PO SCH ×2 (09:26→22:14)
[2017-09-20] MEDS: OLOPATADINE HCL 0.1% OPH SOLN 5 ML OU SCH ×2 (09:26→18:09)
[2017-09-20] MEDS: MULTIVITAMIN TABLET PO SCH (09:26)
[2017-09-20] MEDS: ASPIRIN 81 MG TABLET, CHEWABLE PO SCH (09:27)
[2017-09-20] MEDS: FAMOTIDINE 20 MG TABLET PO SCH ×2 (09:27→22:14)
[2017-09-20] MEDS: DOCUSATE SODIUM 100 MG CAPSULE PO SCH (09:27)
[2017-09-20] MEDS: CHOLECALCIFEROL (D3) 400 UNIT TABLET PO SCH (09:27)
[2017-09-20] MEDS: FUROSEMIDE 40 MG TABLET PO SCH ×2 (09:27→18:01)
[2017-09-20] MEDS: BUDESONIDE/FORMOTEROL 160-4.5 MCG 60 PUFF/6 GM MDI IH SCH ×2 (09:27→18:08)
[2017-09-20] MEDS: SERTRALINE HCL 50 MG TABLET PO SCH (09:27)
[2017-09-20] MEDS: POTASSIUM CHLORIDE 20 MEQ/15 ML UDCUP PO SCH (09:37)
[2017-09-20] MEDS: POLYETHYLENE GLYCOL 3350 POWDER 17 GM/1 PACKET PO SCH (09:37)
[2017-09-20] MEDS: NYSTATIN CREAM 15 GM TP PRN ×2 (15:19→18:07)
[2017-09-20] MEDS: DIPHENHYDRAMINE HCL 50 MG/ML VIAL IV PRN (18:01)
--- NOTE | 2017-09-20 20:37 | PDOC PROGRESS REPORT ---
Subjective Progress Note for:: 09/20/17 Subjective:: Patient was seen by the bedside, she has multiple blisters suggesting that she may have bullous pemphigoid disease, and autoimmune skin disease, she also developed skin reaction to the telemetry electrodes with intense itching. She has erythema intertrigo especially in the perineum.She was admitted for the management of severe bullous/blistering cellulitis of the soles of both feet she underwent debridement Reason For Visit: CELLULITIS Physical Exam Vital Signs: Temp Pulse Resp BP Pulse Ox 97.4 F 80 18 129/55 H 94 09/20/17 17:00 09/20/17 17:00 09/20/17 17:00 09/20/17 17:00 09/20/17 17:00 Intake & Output 09/19/17 09/20/17 09/21/17 06:59 06:59 06:59 Intake Total 642 1120 714 Output Total 0 Balance 642 1120 714 Weight 96.7 kg 96.7 kg General appearance: PRESENT: no acute distress Eye exam: PRESENT: PERRLA Respiratory exam: PRESENT: clear to auscultation jacinot Cardiovascular exam: PRESENT: +S1, +S2 GI/Abdominal exam: PRESENT: soft Neurological exam: PRESENT: alert, oriented to time, oriented to situation Skin exam: PRESENT: erythema - of the perineum, vesicles, other - Bullous eruption in multiple sites of the skin Results Laboratory Results: 09/20/17 05:09 09/20/17 05:09 09/20/17 09/20/17 05:09 05:09 WBC 14.6 H RBC 4.67 Hgb 12.6 Hct 39.0 MCV 84 MCH 27.0 MCHC 32.2 RDW 16.6 H Plt Count 246 Seg Neutrophils % 75.4 Lymphocytes % 12.3 L Monocytes % 5.1 Eosinophils % 6.9 H Basophils % 0.3 Absolute Neutrophils 11.0 H Absolute Lymphocytes 1.8 Absolute Monocytes 0.7 Absolute Eosinophils 1.0 H Absolute Basophils 0.1 Sodium 142.7 Potassium 3.7 Chloride 100 Carbon Dioxide 26 Anion Gap 17 BUN 41 H Creatinine 0.94 Est GFR ( Amer) > 60 Est GFR (Non-Af Amer) 58 L Glucose 133 H Calcium 9.0 Assessment & Plan - Diagnosis (1) Cellulitis of both feet Is this a current diagnosis for this admission?: Yes (2) Occlusion of right subclavian artery Is this a current diagnosis for this admission?: Yes (3) Blisters of multiple sites Is this a current diagnosis for this admission?: Yes (4) Bullous pemphigoid Is this a current diagnosis for this admission?: Yes Plan: Start IV Solu-Medrol 60mg IV every 8 hours (5) Erythema intertrigo Is this a current diagnosis for this admission?: Yes Plan: Start nystatin powder
[2017-09-20] MEDS: ATORVASTATIN CALCIUM 10 MG TABLET PO SCH (22:14)
[2017-09-20] MEDS: METHYLPREDNISOLONE INJ 125 MG/2 ML SDV IV SCH (22:14)
[2017-09-20] MEDS: NYSTATIN TOPICAL POWDER 15 GM TP SCH (22:14)
[2017-09-21] MEDS: CLINDAMYCIN 600 MG/D5W RTU 600 MG/50 ML RTUPB IV SCH ×3 (01:09→17:20)
[2017-09-21] MEDS: DIPHENHYDRAMINE HCL 50 MG/ML VIAL IV PRN (01:09)
[2017-09-21] MEDS: METHYLPREDNISOLONE INJ 125 MG/2 ML SDV IV SCH ×3 (06:22→22:09)
[2017-09-21] MEDS: LANSOPRAZOLE 15 MG TAB.RAP.DR PO SCH (06:22)
[2017-09-21 06:42] LABS: ABSOLUTE LYMPHOCYTES (AUTO) 0.8 10^3/uL (0.5-4.7); ABSOLUTE MONOCYTES (AUTO) 0.1 10^3/uL (0.1-1.4); ABSOLUTE NEUT (AUTO) 10.2 10^3/uL (1.7-8.2); BASOPHILS % (AUTO) 0.2 % (0-2); EOSINOPHILS % (AUTO) 0.1 % (0-6); HEMATOCRIT 36.8 % (36.0-47.0); HEMOGLOBIN 11.9 g/dL (12.0-15.5); LYMPHOCYTES % (AUTO) 6.9 % (13-45); MEAN CORPUSCULAR HGB CONC 32.3 g/dL (32.0-36.0); MEAN CORPUSCULAR VOLUME 84 fl (80-97); MONOCYTES % (AUTO) 0.6 % (3-13); PLATELET COUNT 237 10^3/uL (150-450); RED CELL DISTRIBUTION WIDTH 16.4 % (11.5-14.0); SEGMENTED NEUTROPHILS % (AUTO) 92.2 % (42-78); TOTAL CELLS COUNTED % (AUTO) 100 %
[2017-09-21 07:06] LABS: ANION GAP 14 (5-19); BLOOD UREA NITROGEN 26 mg/dL (7-20); CALCIUM 8.8 mg/dL (8.4-10.2); CARBON DIOXIDE 26 mmol/L (22-30); CHLORIDE 101 mmol/L (98-107); GLUCOSE 200 mg/dL (75-110); POTASSIUM 3.8 mmol/L (3.6-5.0); SODIUM 141.3 mmol/L (137-145)
[2017-09-21] MEDS ORDERED: DEXTROSE 50%-WATER 25 GM/50 ML DISP.SYRIN IV PRN ×2 (08:01)
[2017-09-21] MEDS ORDERED: GLUCAGON,HUMAN RECOMB 1 MG INJ IM PRN (08:01)
[2017-09-21] MEDS ORDERED: DEXTROSE 40% GEL 15 GM TUBE PO PRN ×2 (08:01)
[2017-09-21] MEDS: OLOPATADINE HCL 0.1% OPH SOLN 5 ML OU SCH ×2 (08:42→17:20)
[2017-09-21] MEDS: IPRATROPIUM/ALBUTEROL 0.5-2.5 MG/3 ML AMPUL NEB SCH ×3 (09:08→20:49)
[2017-09-21] MEDS: MULTIVITAMIN TABLET PO SCH (09:27)
[2017-09-21] MEDS: OXYCODONE-ACETAMINOPHEN 5-325 MG TABLET PO PRN (09:27)
[2017-09-21] MEDS: APIXABAN 5 MG TABLET PO SCH ×2 (09:27→22:10)
[2017-09-21] MEDS: CHOLECALCIFEROL (D3) 400 UNIT TABLET PO SCH (09:27)
[2017-09-21] MEDS: FAMOTIDINE 20 MG TABLET PO SCH ×2 (09:28→22:09)
[2017-09-21] MEDS: SERTRALINE HCL 50 MG TABLET PO SCH (09:28)
[2017-09-21] MEDS: DOCUSATE SODIUM 100 MG CAPSULE PO SCH (09:28)
[2017-09-21] MEDS: ASPIRIN 81 MG TABLET, CHEWABLE PO SCH (09:28)
[2017-09-21] MEDS: BUDESONIDE/FORMOTEROL 160-4.5 MCG 60 PUFF/6 GM MDI IH SCH ×2 (09:29→17:19)
[2017-09-21] MEDS: FUROSEMIDE 40 MG TABLET PO SCH ×2 (09:29→17:19)
[2017-09-21] MEDS: NYSTATIN TOPICAL POWDER 15 GM TP SCH ×2 (09:29→22:10)
[2017-09-21] MEDS: NYSTATIN CREAM 15 GM TP PRN ×3 (09:30→17:28)
[2017-09-21] MEDS: POTASSIUM CHLORIDE 20 MEQ/15 ML UDCUP PO SCH (09:30)
[2017-09-21] MEDS: POLYETHYLENE GLYCOL 3350 POWDER 17 GM/1 PACKET PO SCH (09:44)
[2017-09-21] MEDS: INSULIN LISPRO 100 UNIT/ML 3 ML VIAL SUBCUT PRN ×2 (11:51→17:19)
--- NOTE | 2017-09-21 20:43 | PDOC PROGRESS REPORT ---
Subjective Progress Note for:: 09/21/17 Subjective:: She was seen by the bedside she seems to be responding to treatment Reason For Visit: CELLULITIS Physical Exam Vital Signs: Temp Pulse Resp BP Pulse Ox 97.5 F 99 22 H 120/53 L 93 09/21/17 16:35 09/21/17 16:35 09/21/17 16:35 09/21/17 16:35 09/21/17 16:35 Intake & Output 09/20/17 09/21/17 09/22/17 06:59 06:59 06:59 Intake Total 1120 936 800 Balance 1120 936 800 Weight 96.7 kg 97.7 kg General appearance: PRESENT: no acute distress Eye exam: PRESENT: PERRLA Respiratory exam: PRESENT: clear to auscultation jacinto Cardiovascular exam: PRESENT: +S1, +S2 GI/Abdominal exam: PRESENT: soft Neurological exam: PRESENT: alert Results Laboratory Results: 09/21/17 05:29 09/21/17 05:29 09/21/17 09/21/17 05:29 05:29 WBC 11.0 H RBC 4.40 Hgb 11.9 L Hct 36.8 MCV 84 MCH 27.0 MCHC 32.3 RDW 16.4 H Plt Count 237 Seg Neutrophils % 92.2 H Lymphocytes % 6.9 L Monocytes % 0.6 L Eosinophils % 0.1 Basophils % 0.2 Absolute Neutrophils 10.2 H Absolute Lymphocytes 0.8 Absolute Monocytes 0.1 Absolute Eosinophils 0.0 Absolute Basophils 0.0 Sodium 141.3 Potassium 3.8 Chloride 101 Carbon Dioxide 26 Anion Gap 14 BUN 26 H Creatinine 0.75 Est GFR ( Amer) > 60 Est GFR (Non-Af Amer) > 60 Glucose 200 H Calcium 8.8 Assessment & Plan - Diagnosis (1) Cellulitis of both feet Is this a current diagnosis for this admission?: Yes (2) Occlusion of right subclavian artery Is this a current diagnosis for this admission?: Yes (3) Blisters of multiple sites Is this a current diagnosis for this admission?: Yes (4) Bullous pemphigoid Is this a current diagnosis for this admission?: Yes (5) Erythema intertrigo Is this a current diagnosis for this admission?: Yes
[2017-09-21] MEDS: ATORVASTATIN CALCIUM 10 MG TABLET PO SCH (22:10)
[2017-09-22] MEDS: CLINDAMYCIN 600 MG/D5W RTU 600 MG/50 ML RTUPB IV SCH ×3 (01:36→18:27)
[2017-09-22] MEDS: LANSOPRAZOLE 15 MG TAB.RAP.DR PO SCH (05:20)
[2017-09-22] MEDS: METHYLPREDNISOLONE INJ 125 MG/2 ML SDV IV SCH ×3 (05:20→21:20)
[2017-09-22] MEDS: OLOPATADINE HCL 0.1% OPH SOLN 5 ML OU SCH ×2 (08:19→18:27)
[2017-09-22] MEDS: APIXABAN 5 MG TABLET PO SCH ×2 (08:20→21:20)
[2017-09-22] MEDS: IPRATROPIUM/ALBUTEROL 0.5-2.5 MG/3 ML AMPUL NEB SCH ×3 (08:36→20:24)
[2017-09-22] MEDS: POLYETHYLENE GLYCOL 3350 POWDER 17 GM/1 PACKET PO SCH (10:56)
[2017-09-22] MEDS: POTASSIUM CHLORIDE 20 MEQ/15 ML UDCUP PO SCH (10:56)
[2017-09-22] MEDS: CHOLECALCIFEROL (D3) 400 UNIT TABLET PO SCH (11:01)
[2017-09-22] MEDS: BUDESONIDE/FORMOTEROL 160-4.5 MCG 60 PUFF/6 GM MDI IH SCH ×2 (11:01→18:27)
[2017-09-22] MEDS: DOCUSATE SODIUM 100 MG CAPSULE PO SCH (11:02)
[2017-09-22] MEDS: ASPIRIN 81 MG TABLET, CHEWABLE PO SCH (11:02)
[2017-09-22] MEDS: FAMOTIDINE 20 MG TABLET PO SCH ×2 (11:02→21:20)
[2017-09-22] MEDS: FUROSEMIDE 40 MG TABLET PO SCH ×2 (11:03→18:26)
[2017-09-22] MEDS: SERTRALINE HCL 50 MG TABLET PO SCH (11:03)
[2017-09-22] MEDS: MULTIVITAMIN TABLET PO SCH (11:03)
[2017-09-22] MEDS: NYSTATIN CREAM 15 GM TP PRN (11:04)
[2017-09-22] MEDS: NYSTATIN TOPICAL POWDER 15 GM TP SCH ×2 (11:06→21:20)
[2017-09-22 13:12] LABS: HEMATOCRIT 36.1 % (36.0-47.0); HEMOGLOBIN 11.7 g/dL (12.0-15.5); MEAN CORPUSCULAR HEMOGLOBIN 26.9 pg (27.0-33.4); MEAN CORPUSCULAR HGB CONC 32.4 g/dL (32.0-36.0); MEAN CORPUSCULAR VOLUME 83 fl (80-97); PLATELET COUNT 245 10^3/uL (150-450); RED BLOOD COUNT 4.36 10^6/uL (3.72-5.28); RED CELL DISTRIBUTION WIDTH 17.1 % (11.5-14.0); WHITE BLOOD COUNT 18.8 10^3/uL (4.0-10.5)
[2017-09-22 13:35] LABS: ALANINE AMINOTRANSFERASE 28 U/L (9-52); ALBUMIN 3.3 g/dL (3.5-5.0); ALKALINE PHOSPHATASE 90 U/L (38-126); ANION GAP 15 (5-19); ASPARTATE AMINO TRANSFERASE 24 U/L (14-36); BILIRUBIN,DIRECT 0.2 mg/dL (0.0-0.4); BILIRUBIN,TOTAL 0.2 mg/dL (0.2-1.3); BLOOD UREA NITROGEN 26 mg/dL (7-20); CALCIUM 8.7 mg/dL (8.4-10.2); CARBON DIOXIDE 28 mmol/L (22-30); CHLORIDE 100 mmol/L (98-107); GLUCOSE 178 mg/dL (75-110); POTASSIUM 3.5 mmol/L (3.6-5.0); SODIUM 142.6 mmol/L (137-145); TOTAL PROTEIN 6.3 g/dL (6.3-8.2)
[2017-09-22 13:40] LABS: ABSOLUTE LYMPHOCYTES# (MANUAL) 1.7 10^3/uL (0.5-4.7); ABSOLUTE MONOCYTES # (MANUAL) 0.4 10^3/uL (0.1-1.4); ABSOLUTE NEUTROPHILS# (MANUAL) 16.7 10^3/uL (1.7-8.2); BASOPHILS % (MANUAL) 0 % (0-2); EOSINOPHILS % (MANUAL) 0 % (0-6); LYMPHOCYTES % (MANUAL) 8 % (13-45); MONOCYTES % (MANUAL) 2 % (3-13); SEGMENTED NEUTROPHILS % (MAN) 89 % (42-78); TOTAL CELLS COUNTED 100
[2017-09-22 13:42] LABS: ANISOCYTOSIS 1+; HYPOCHROMASIA SLIGHT; POIKILOCYTOSIS SLIGHT; POLYCHROMASIA SLIGHT
[2017-09-22 13:43] LABS: PLATELET COMMENT ADEQUATE; TARGET CELLS SLIGHT
[2017-09-22] MEDS: ATORVASTATIN CALCIUM 10 MG TABLET PO SCH (21:20)
--- NOTE | 2017-09-22 22:41 | PDOC PROGRESS REPORT ---
Subjective Progress Note for:: 09/22/17 Subjective:: She was seen by the bedside, she improved with the intravenous Solu-Medrol, this will be transitioned to p.o. prednisone Reason For Visit: CELLULITIS Physical Exam Vital Signs: Temp Pulse Resp BP Pulse Ox 98.5 F 93 20 159/68 H 91 L 09/22/17 16:00 09/22/17 20:24 09/22/17 20:24 09/22/17 16:00 09/22/17 20:24 Intake & Output 09/21/17 09/22/17 09/23/17 06:59 06:59 06:59 Intake Total 936 1560 970 Balance 936 1560 970 Weight 97.7 kg 97.3 kg General appearance: PRESENT: no acute distress Eye exam: PRESENT: PERRLA Respiratory exam: PRESENT: clear to auscultation jacinto Cardiovascular exam: PRESENT: +S1, +S2 GI/Abdominal exam: PRESENT: soft Neurological exam: PRESENT: alert Results Laboratory Results: 09/22/17 12:49 09/22/17 12:49 09/22/17 09/22/17 12:49 12:49 WBC 18.8 H RBC 4.36 Hgb 11.7 L Hct 36.1 MCV 83 MCH 26.9 L MCHC 32.4 RDW 17.1 H Plt Count 245 Seg Neutrophils % Not Reportable Lymphocytes % Not Reportable Monocytes % Not Reportable Eosinophils % Not Reportable Basophils % Not Reportable Absolute Neutrophils Not Reportable Absolute Lymphocytes Not Reportable Absolute Monocytes Not Reportable Absolute Eosinophils Not Reportable Absolute Basophils Not Reportable Sodium 142.6 Potassium 3.5 L Chloride 100 Carbon Dioxide 28 Anion Gap 15 BUN 26 H Creatinine 0.71 Est GFR ( Amer) > 60 Est GFR (Non-Af Amer) > 60 Glucose 178 H Calcium 8.7 Total Bilirubin 0.2 AST 24 ALT 28 Alkaline Phosphatase 90 Total Protein 6.3 Albumin 3.3 L Assessment & Plan - Diagnosis (1) Cellulitis of both feet Is this a current diagnosis for this admission?: Yes (2) Occlusion of right subclavian artery Is this a current diagnosis for this admission?: Yes (3) Blisters of multiple sites Is this a current diagnosis for this admission?: Yes (4) Bullous pemphigoid Is this a current diagnosis for this admission?: Yes (5) Erythema intertrigo Is this a current diagnosis for this admission?: Yes
[2017-09-22] MEDS ORDERED: PREDNISONE 10 MG TABLET PO SCH (22:45)
[2017-09-23] MEDS: CLINDAMYCIN 600 MG/D5W RTU 600 MG/50 ML RTUPB IV SCH ×3 (02:04→17:37)
[2017-09-23] MEDS: LANSOPRAZOLE 15 MG TAB.RAP.DR PO SCH (05:21)
[2017-09-23] MEDS: METHYLPREDNISOLONE INJ 125 MG/2 ML SDV IV SCH (05:21)
[2017-09-23] MEDS: IPRATROPIUM/ALBUTEROL 0.5-2.5 MG/3 ML AMPUL NEB SCH ×3 (08:32→20:16)
--- NOTE | 2017-09-23 10:19 | RADIOLOGY REPORT (SQ) ---
EXAM DESCRIPTION: U/S NON-OB PELVIS W/O DOP COMPLETED DATE/TIME: 09/23/2017 9:43 am REASON FOR STUDY: postmenopausal bleeding, On eliquis COMPARISON: None. TECHNIQUE: Dynamic and static grayscale images acquired of the pelvis via transabdominal approach an d recorded on PACS. Additional selected color Doppler and spectral images recorded. LIMITATIONS: Body habitus. FINDINGS: The urinary bladder is normal. Uterus and ovaries are not identified. No free fluid. IMPRESSION: Limited study. No adnexal mass. TECHNICAL DOCUMENTATION: JOB ID: [id number] [employer]- All Rights Reserved Reading location - IP/workstation name: [email or web address]
[2017-09-23] MEDS: OLOPATADINE HCL 0.1% OPH SOLN 5 ML OU SCH ×2 (10:35→17:37)
[2017-09-23] MEDS: DOCUSATE SODIUM 100 MG CAPSULE PO SCH (10:35)
[2017-09-23] MEDS: FAMOTIDINE 20 MG TABLET PO SCH ×2 (10:35→21:50)
[2017-09-23] MEDS: PREDNISONE 20 MG TABLET PO SCH (10:35)
[2017-09-23] MEDS: POTASSIUM CHLORIDE 20 MEQ/15 ML UDCUP PO SCH (10:35)
[2017-09-23] MEDS: ASPIRIN 81 MG TABLET, CHEWABLE PO SCH (10:36)
[2017-09-23] MEDS: FUROSEMIDE 40 MG TABLET PO SCH ×2 (10:36→17:37)
[2017-09-23] MEDS: SERTRALINE HCL 50 MG TABLET PO SCH (10:39)
[2017-09-23] MEDS: MULTIVITAMIN TABLET PO SCH (10:39)
[2017-09-23] MEDS: APIXABAN 5 MG TABLET PO SCH ×2 (10:40→21:50)
[2017-09-23] MEDS: POLYETHYLENE GLYCOL 3350 POWDER 17 GM/1 PACKET PO SCH (10:41)
[2017-09-23] MEDS: CHOLECALCIFEROL (D3) 400 UNIT TABLET PO SCH (10:54)
[2017-09-23] MEDS: NYSTATIN CREAM 15 GM TP PRN ×2 (10:54→21:49)
[2017-09-23] MEDS: BUDESONIDE/FORMOTEROL 160-4.5 MCG 60 PUFF/6 GM MDI IH SCH ×2 (10:54→17:38)
[2017-09-23] MEDS: NYSTATIN TOPICAL POWDER 15 GM TP SCH ×2 (10:55→21:50)
[2017-09-23] MEDS: INSULIN LISPRO 100 UNIT/ML 3 ML VIAL SUBCUT PRN (12:45)
[2017-09-23] MEDS: ATORVASTATIN CALCIUM 10 MG TABLET PO SCH (21:50)
--- NOTE | 2017-09-23 21:54 | PDOC PROGRESS REPORT ---
Subjective Progress Note for:: 09/23/17 Subjective:: Patient is improving Reason For Visit: CELLULITIS Physical Exam Vital Signs: Temp Pulse Resp BP Pulse Ox 98.3 F 94 18 147/80 H 94 09/23/17 19:52 09/23/17 20:16 09/23/17 20:16 09/23/17 19:52 09/23/17 20:16 Intake & Output 09/22/17 09/23/17 09/24/17 06:59 06:59 06:59 Intake Total 1560 1822 1332 Balance 1560 1822 1332 Weight 97.3 kg 98.4 kg General appearance: PRESENT: no acute distress Eye exam: PRESENT: PERRLA Respiratory exam: PRESENT: clear to auscultation jacinto Cardiovascular exam: PRESENT: +S1, +S2 GI/Abdominal exam: PRESENT: soft Neurological exam: PRESENT: alert Results Laboratory Results: 09/22/17 12:49 09/22/17 12:49 Impressions: Pelvis Ultrasound 09/23/17 05:59 IMPRESSION: Limited study. No adnexal mass. Assessment & Plan - Diagnosis (1) Cellulitis of both feet Is this a current diagnosis for this admission?: Yes (2) Occlusion of right subclavian artery Is this a current diagnosis for this admission?: Yes (3) Blisters of multiple sites Is this a current diagnosis for this admission?: Yes (4) Bullous pemphigoid Is this a current diagnosis for this admission?: Yes (5) Erythema intertrigo Is this a current diagnosis for this admission?: Yes - Plan Summary Plan Summary: Continue treatment
[2017-09-24] MEDS: OXYCODONE-ACETAMINOPHEN 5-325 MG TABLET PO PRN (00:14)
[2017-09-24] MEDS: CLINDAMYCIN 600 MG/D5W RTU 600 MG/50 ML RTUPB IV SCH ×3 (02:24→18:34)
[2017-09-24] MEDS: LANSOPRAZOLE 15 MG TAB.RAP.DR PO SCH (06:24)
[2017-09-24] MEDS: IPRATROPIUM/ALBUTEROL 0.5-2.5 MG/3 ML AMPUL NEB SCH ×3 (09:01→20:03)
[2017-09-24] MEDS: SERTRALINE HCL 50 MG TABLET PO SCH (10:16)
[2017-09-24] MEDS: MULTIVITAMIN TABLET PO SCH (10:16)
[2017-09-24] MEDS: ASPIRIN 81 MG TABLET, CHEWABLE PO SCH (10:16)
[2017-09-24] MEDS: POLYETHYLENE GLYCOL 3350 POWDER 17 GM/1 PACKET PO SCH (10:16)
[2017-09-24] MEDS: PREDNISONE 20 MG TABLET PO SCH (10:17)
[2017-09-24] MEDS: FAMOTIDINE 20 MG TABLET PO SCH ×2 (10:17→22:48)
[2017-09-24] MEDS: DOCUSATE SODIUM 100 MG CAPSULE PO SCH (10:17)
[2017-09-24] MEDS: FUROSEMIDE 40 MG TABLET PO SCH ×2 (10:17→15:59)
[2017-09-24] MEDS: POTASSIUM CHLORIDE 20 MEQ/15 ML UDCUP PO SCH (10:18)
[2017-09-24] MEDS: CHOLECALCIFEROL (D3) 400 UNIT TABLET PO SCH (10:19)
[2017-09-24] MEDS: BUDESONIDE/FORMOTEROL 160-4.5 MCG 60 PUFF/6 GM MDI IH SCH ×2 (10:19→15:59)
[2017-09-24] MEDS: APIXABAN 5 MG TABLET PO SCH ×2 (10:19→22:48)
[2017-09-24] MEDS: OLOPATADINE HCL 0.1% OPH SOLN 5 ML OU SCH ×2 (10:20→15:58)
[2017-09-24] MEDS: NYSTATIN TOPICAL POWDER 15 GM TP SCH ×2 (10:21→22:49)
--- NOTE | 2017-09-24 17:05 | PDOC PROGRESS REPORT ---
Subjective Progress Note for:: 09/24/17 Subjective:: There is no new complaints Reason For Visit: CELLULITIS Physical Exam Vital Signs: Temp Pulse Resp BP Pulse Ox 97.8 F 102 H 20 151/78 H 94 09/24/17 16:00 09/24/17 16:00 09/24/17 16:00 09/24/17 16:00 09/24/17 16:09 Intake & Output 09/23/17 09/24/17 09/25/17 06:59 06:59 06:59 Intake Total 1822 2410 Balance 1822 2410 Weight 98.4 kg 101 kg General appearance: PRESENT: no acute distress Eye exam: PRESENT: PERRLA Respiratory exam: PRESENT: clear to auscultation jacinto Cardiovascular exam: PRESENT: +S1, +S2 GI/Abdominal exam: PRESENT: soft Neurological exam: PRESENT: alert Results Laboratory Results: 09/22/17 12:49 09/22/17 12:49 Impressions: Pelvis Ultrasound 09/23/17 05:59 IMPRESSION: Limited study. No adnexal mass. Assessment & Plan - Diagnosis (1) Cellulitis of both feet Is this a current diagnosis for this admission?: Yes (2) Occlusion of right subclavian artery Is this a current diagnosis for this admission?: Yes (3) Blisters of multiple sites Is this a current diagnosis for this admission?: Yes (4) Bullous pemphigoid Is this a current diagnosis for this admission?: Yes (5) Erythema intertrigo Is this a current diagnosis for this admission?: Yes - Plan Summary Plan Summary: Continue treatment
[2017-09-24] MEDS: ATORVASTATIN CALCIUM 10 MG TABLET PO SCH (22:48)
[2017-09-25] MEDS: CLINDAMYCIN 600 MG/D5W RTU 600 MG/50 ML RTUPB IV SCH ×3 (01:27→17:42)
[2017-09-25] MEDS: OXYCODONE-ACETAMINOPHEN 5-325 MG TABLET PO PRN (03:46)
[2017-09-25] MEDS: LANSOPRAZOLE 15 MG TAB.RAP.DR PO SCH (05:17)
[2017-09-25] MEDS: IPRATROPIUM/ALBUTEROL 0.5-2.5 MG/3 ML AMPUL NEB SCH ×3 (07:49→20:20)
[2017-09-25] MEDS: APIXABAN 5 MG TABLET PO SCH ×2 (07:52→20:00)
[2017-09-25] MEDS: OLOPATADINE HCL 0.1% OPH SOLN 5 ML OU SCH ×2 (07:52→16:17)
--- NOTE | 2017-09-25 10:34 | CONSULTATION REPORT E ---
Consultation Report NAME: GIO DONNELLY : 1940 AGE: 76Y DATE: 422 A TO: Ananya LAWLER M.D. FROM: SCOUT ODONNELL M.D. Requesting Physician The patient is a 76-year-old 0 who is admitted for cellulitis of her lower extremities. Patient has a history of having bleeding unknown as to if it was vaginal or rectal or urinary, but has had no bleeding since she has been in the hospital. Patient had an ultrasound done which is inconclusive as it did not show uterus or ovaries and there was no endometrial thickness determined. Patient gives a history of having had a tubal when she was younger because of her mother being told she was unable to carry children. Her exam is deferred secondary to her present medical condition. ASSESSMENT: Unknown bleeding and unable to adequately examine or do her appropriate diagnostic tests. I would recommend that the patient when she is able be seen either in the hospital again or as an outpatient for additional testing to determine endometrial thickness and may need endometrial evaluation either by biopsies or hysteroscopy. I will be glad to see her or in the office an an outpatient. Consult again for treatment while in hospital if she has any further vaginal bleeding. DICTATING PHYSICIAN: Ananya LAWLER M.D. [id number] Y#: [id number] ID: [id number] JOB#: [id number] ACCT: [id number] cc:Ananya LAWLER M.D. >
[2017-09-25] MEDS: BUDESONIDE/FORMOTEROL 160-4.5 MCG 60 PUFF/6 GM MDI IH SCH ×2 (11:04→16:17)
[2017-09-25] MEDS: SERTRALINE HCL 50 MG TABLET PO SCH (11:09)
[2017-09-25] MEDS: MULTIVITAMIN TABLET PO SCH (11:09)
[2017-09-25] MEDS: FAMOTIDINE 20 MG TABLET PO SCH ×2 (11:10→22:00)
[2017-09-25] MEDS: FUROSEMIDE 40 MG TABLET PO SCH ×2 (11:10→16:18)
[2017-09-25] MEDS: PREDNISONE 20 MG TABLET PO SCH (11:10)
[2017-09-25] MEDS: ASPIRIN 81 MG TABLET, CHEWABLE PO SCH (11:10)
[2017-09-25] MEDS: DOCUSATE SODIUM 100 MG CAPSULE PO SCH (11:10)
[2017-09-25] MEDS: POLYETHYLENE GLYCOL 3350 POWDER 17 GM/1 PACKET PO SCH (11:11)
[2017-09-25] MEDS: CHOLECALCIFEROL (D3) 400 UNIT TABLET PO SCH (11:12)
[2017-09-25] MEDS: NYSTATIN TOPICAL POWDER 15 GM TP SCH (11:26)
[2017-09-25] MEDS: POTASSIUM CHLORIDE 20 MEQ/15 ML UDCUP PO SCH (11:26)
[2017-09-25] MEDS ORDERED: LORAZEPAM INJ 2 MG/1 ML VIAL IV ONE (12:00)
--- NOTE | 2017-09-25 13:43 | RADIOLOGY REPORT (SQ) ---
EXAM DESCRIPTION: MRI HEAD WITHOUT COMPLETED DATE/TIME: 09/25/2017 1:29 pm REASON FOR STUDY: weakness of the lower extremity COMPARISON: None. TECHNIQUE: Multiplanar imaging includes non-contrasted T1, T2, FLAIR, and diffusion with ADC map seq uences. Images stored on PACS. LIMITATIONS: None. FINDINGS: ANATOMY: No anomalies. Normal vascular flow voids. Pituitary fossa normal. CSF SPACES: Atrophy induced prominence of ventricles and CSF spaces. CEREBRUM: High signal intensity lesions scattered throughout the white matter on FLAIR imaging with d istribution suggesting micro-vascular ischemic changes. No evidence of hemorrhage, mass, or extraaxi al fluid collection. POSTERIOR FOSSA: No signal alteration. No hemorrhage. No edema, masses or mass effect. Internal manjit tory canals, cerebello-pontine angles, mastoids normal. DIFFUSION IMAGING: Negative for acute or sub-acute infarction. ORBITS: No masses. Globes normal. PARANASAL SINUSES: Mucosal thickening left sphenoid and maxillary sinuses. OTHER: No other significant finding. IMPRESSION: ATROPHY AND CHRONIC MICRO-VASCULAR ISCHEMIC CHANGES. OTHERWISE NORMAL MRI OF THE BRAIN W ITHOUT INTRAVENOUS GADOLINIUM CONTRAST. EVIDENCE OF ACUTE STROKE: NO. TECHNICAL DOCUMENTATION: JOB ID: [id number] [employer]- All Rights Reserved Reading location - IP/workstation name: [email or web address]
--- NOTE | 2017-09-25 15:45 | PDOC PROGRESS REPORT ---
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, MRI of the brain was done CVA was ruled out, the loss of mobility in this patient is chronic Reason For Visit: CELLULITIS Physical Exam Vital Signs: Temp Pulse Resp BP Pulse Ox 97.9 F 85 16 150/68 H 95 09/25/17 12:05 09/25/17 14:01 09/25/17 14:01 09/25/17 12:05 09/25/17 14:01 Intake & Output 09/24/17 09/25/17 09/26/17 06:59 06:59 06:59 Intake Total 2410 1641 Balance 2410 1641 Weight 101 kg 99.5 kg General appearance: PRESENT: no acute distress Eye exam: PRESENT: PERRLA Respiratory exam: PRESENT: clear to auscultation jacinto Cardiovascular exam: PRESENT: +S1, +S2 GI/Abdominal exam: PRESENT: soft Neurological exam: PRESENT: alert Results Laboratory Results: 09/22/17 12:49 09/22/17 12:49 09/21/17 12:20 Foot - Abscess Gram Stain - Final 09/21/17 12:20 Foot - Abscess Wound Culture - Final Enterococcus Faecalis(Group D) No Anaerobic Organisms Impressions: Pelvis Ultrasound 09/23/17 05:59 IMPRESSION: Limited study. No adnexal mass. Head MRI 09/25/17 00:00 IMPRESSION: ATROPHY AND CHRONIC MICRO-VASCULAR ISCHEMIC CHANGES. OTHERWISE NORMAL MRI OF THE BRAIN WITHOUT INTRAVENOUS GADOLINIUM CONTRAST. EVIDENCE OF ACUTE STROKE: NO. Assessment & Plan - Diagnosis (1) Cellulitis of both feet Is this a current diagnosis for this admission?: Yes (2) Occlusion of right subclavian artery Is this a current diagnosis for this admission?: Yes (3) Blisters of multiple sites Is this a current diagnosis for this admission?: Yes (4) Bullous pemphigoid Is this a current diagnosis for this admission?: Yes (5) Erythema intertrigo Is this a current diagnosis for this admission?: Yes - Plan Summary Plan Summary: Continue treatment
[2017-09-25] MEDS: ATORVASTATIN CALCIUM 10 MG TABLET PO SCH (22:00)
[2017-09-26] MEDS: NYSTATIN TOPICAL POWDER 15 GM TP SCH ×3 (01:32→23:00)
[2017-09-26] MEDS: CLINDAMYCIN 600 MG/D5W RTU 600 MG/50 ML RTUPB IV SCH ×3 (01:33→16:47)
[2017-09-26] MEDS: LANSOPRAZOLE 15 MG TAB.RAP.DR PO SCH (06:25)
[2017-09-26] MEDS: IPRATROPIUM/ALBUTEROL 0.5-2.5 MG/3 ML AMPUL NEB SCH ×3 (08:43→19:49)
[2017-09-26] MEDS: OLOPATADINE HCL 0.1% OPH SOLN 5 ML OU SCH ×2 (09:59→16:47)
[2017-09-26] MEDS: POLYETHYLENE GLYCOL 3350 POWDER 17 GM/1 PACKET PO SCH (09:59)
[2017-09-26] MEDS: APIXABAN 5 MG TABLET PO SCH ×2 (10:00→20:54)
[2017-09-26] MEDS: ASPIRIN 81 MG TABLET, CHEWABLE PO SCH (10:00)
[2017-09-26] MEDS: FAMOTIDINE 20 MG TABLET PO SCH ×2 (10:01→22:59)
[2017-09-26] MEDS: FUROSEMIDE 40 MG TABLET PO SCH ×2 (10:01→16:47)
[2017-09-26] MEDS: MULTIVITAMIN TABLET PO SCH (10:01)
[2017-09-26] MEDS: CHOLECALCIFEROL (D3) 400 UNIT TABLET PO SCH (10:01)
[2017-09-26] MEDS: DOCUSATE SODIUM 100 MG CAPSULE PO SCH (10:01)
[2017-09-26] MEDS: BUDESONIDE/FORMOTEROL 160-4.5 MCG 60 PUFF/6 GM MDI IH SCH ×2 (10:01→17:53)
[2017-09-26] MEDS: POTASSIUM CHLORIDE 20 MEQ/15 ML UDCUP PO SCH (10:01)
[2017-09-26] MEDS: SERTRALINE HCL 50 MG TABLET PO SCH (10:02)
[2017-09-26] MEDS: PREDNISONE 20 MG TABLET PO SCH (10:02)
[2017-09-26] MEDS: OXYCODONE-ACETAMINOPHEN 5-325 MG TABLET PO PRN (17:15)
--- NOTE | 2017-09-26 21:00 | PDOC PROGRESS REPORT ---
Subjective Progress Note for:: 09/26/17 Subjective:: She was seen by the bedside, there is no new complaints. Reason For Visit: CELLULITIS Physical Exam Vital Signs: Temp Pulse Resp BP Pulse Ox 97.5 F 84 18 125/55 L 92 09/26/17 16:35 09/26/17 19:55 09/26/17 19:55 09/26/17 16:35 09/26/17 19:55 Intake & Output 09/25/17 09/26/17 09/27/17 06:59 06:59 06:59 Intake Total 1641 1167 750 Balance 1641 1167 750 Weight 99.5 kg 100.2 kg General appearance: PRESENT: no acute distress Eye exam: PRESENT: PERRLA Respiratory exam: PRESENT: clear to auscultation jacinto Cardiovascular exam: PRESENT: +S1, +S2 GI/Abdominal exam: PRESENT: soft Neurological exam: PRESENT: alert Results Laboratory Results: 09/22/17 12:49 09/22/17 12:49 Impressions: Pelvis Ultrasound 09/23/17 05:59 IMPRESSION: Limited study. No adnexal mass. Head MRI 09/25/17 00:00 IMPRESSION: ATROPHY AND CHRONIC MICRO-VASCULAR ISCHEMIC CHANGES. OTHERWISE NORMAL MRI OF THE BRAIN WITHOUT INTRAVENOUS GADOLINIUM CONTRAST. EVIDENCE OF ACUTE STROKE: NO. Assessment & Plan - Diagnosis (1) Cellulitis of both feet Is this a current diagnosis for this admission?: Yes (2) Occlusion of right subclavian artery Is this a current diagnosis for this admission?: Yes (3) Blisters of multiple sites Is this a current diagnosis for this admission?: Yes (4) Bullous pemphigoid Is this a current diagnosis for this admission?: Yes (5) Erythema intertrigo Is this a current diagnosis for this admission?: Yes
[2017-09-26] MEDS: ATORVASTATIN CALCIUM 10 MG TABLET PO SCH (22:59)
[2017-09-27] MEDS: CLINDAMYCIN 600 MG/D5W RTU 600 MG/50 ML RTUPB IV SCH ×3 (02:46→15:42)
[2017-09-27] MEDS: DIPHENHYDRAMINE HCL 50 MG/ML VIAL IV PRN (02:46)
[2017-09-27] MEDS: LANSOPRAZOLE 15 MG TAB.RAP.DR PO SCH (06:02)
[2017-09-27] MEDS: NYSTATIN TOPICAL POWDER 15 GM TP SCH (08:30)
[2017-09-27] MEDS: IPRATROPIUM/ALBUTEROL 0.5-2.5 MG/3 ML AMPUL NEB SCH ×2 (08:37→14:00)
[2017-09-27] MEDS: OLOPATADINE HCL 0.1% OPH SOLN 5 ML OU SCH ×2 (09:26→14:47)
[2017-09-27] MEDS: POTASSIUM CHLORIDE 20 MEQ/15 ML UDCUP PO SCH (09:26)
[2017-09-27] MEDS: ASPIRIN 81 MG TABLET, CHEWABLE PO SCH (09:38)
[2017-09-27] MEDS: CHOLECALCIFEROL (D3) 400 UNIT TABLET PO SCH (09:40)
[2017-09-27] MEDS: BUDESONIDE/FORMOTEROL 160-4.5 MCG 60 PUFF/6 GM MDI IH SCH ×2 (09:40→15:02)
[2017-09-27] MEDS: APIXABAN 5 MG TABLET PO SCH ×2 (09:40→22:51)
[2017-09-27] MEDS: FAMOTIDINE 20 MG TABLET PO SCH ×2 (09:41→22:51)
[2017-09-27] MEDS: MULTIVITAMIN TABLET PO SCH (09:41)
[2017-09-27] MEDS: FUROSEMIDE 40 MG TABLET PO SCH ×2 (09:41→15:42)
[2017-09-27] MEDS: PREDNISONE 20 MG TABLET PO SCH (09:42)
[2017-09-27] MEDS: DOCUSATE SODIUM 100 MG CAPSULE PO SCH (09:42)
[2017-09-27] MEDS: SERTRALINE HCL 50 MG TABLET PO SCH (09:42)
[2017-09-27] MEDS: POLYETHYLENE GLYCOL 3350 POWDER 17 GM/1 PACKET PO SCH (09:42)
[2017-09-27] MEDS ORDERED: IPRATROPIUM/ALBUTEROL 0.5-2.5 MG/3 ML AMPUL NEB PRN (14:30)
--- NOTE | 2017-09-27 21:31 | PDOC PROGRESS REPORT ---
Subjective Progress Note for:: 09/27/17 Subjective:: She was seen by the bedside the infected blisters in the sole of the feet is much better, she be transferred back to longterm in a.m. Reason For Visit: CELLULITIS Physical Exam Vital Signs: Temp Pulse Resp BP Pulse Ox 98.6 F 81 20 149/54 H 94 09/27/17 20:03 09/27/17 20:03 09/27/17 20:03 09/27/17 20:03 09/27/17 20:03 Intake & Output 09/26/17 09/27/17 09/28/17 06:59 06:59 06:59 Intake Total 1167 1340 656 Balance 1167 1340 656 Weight 100.2 kg General appearance: PRESENT: no acute distress Eye exam: PRESENT: PERRLA Respiratory exam: PRESENT: clear to auscultation jacinto Cardiovascular exam: PRESENT: +S1, +S2 GI/Abdominal exam: PRESENT: soft Neurological exam: PRESENT: alert Results Laboratory Results: 09/22/17 12:49 09/22/17 12:49 Impressions: Pelvis Ultrasound 09/23/17 05:59 IMPRESSION: Limited study. No adnexal mass. Head MRI 09/25/17 00:00 IMPRESSION: ATROPHY AND CHRONIC MICRO-VASCULAR ISCHEMIC CHANGES. OTHERWISE NORMAL MRI OF THE BRAIN WITHOUT INTRAVENOUS GADOLINIUM CONTRAST. EVIDENCE OF ACUTE STROKE: NO. Assessment & Plan - Diagnosis (1) Cellulitis of both feet Is this a current diagnosis for this admission?: Yes (2) Occlusion of right subclavian artery Is this a current diagnosis for this admission?: Yes (3) Blisters of multiple sites Is this a current diagnosis for this admission?: Yes (4) Bullous pemphigoid Is this a current diagnosis for this admission?: Yes (5) Erythema intertrigo Is this a current diagnosis for this admission?: Yes
[2017-09-27] MEDS: ATORVASTATIN CALCIUM 10 MG TABLET PO SCH (22:51)
[2017-09-28] MEDS: CLINDAMYCIN 600 MG/D5W RTU 600 MG/50 ML RTUPB IV SCH ×3 (02:12→18:15)
[2017-09-28] MEDS: LANSOPRAZOLE 15 MG TAB.RAP.DR PO SCH (06:57)
[2017-09-28] MEDS: APIXABAN 5 MG TABLET PO SCH (08:30)
[2017-09-28] MEDS: OLOPATADINE HCL 0.1% OPH SOLN 5 ML OU SCH ×2 (08:31→18:18)
[2017-09-28] MEDS: BUDESONIDE/FORMOTEROL 160-4.5 MCG 60 PUFF/6 GM MDI IH SCH ×2 (10:46→18:18)
[2017-09-28] MEDS: DOCUSATE SODIUM 100 MG CAPSULE PO SCH (10:46)
[2017-09-28] MEDS: ASPIRIN 81 MG TABLET, CHEWABLE PO SCH (10:46)
[2017-09-28] MEDS: CHOLECALCIFEROL (D3) 400 UNIT TABLET PO SCH (10:47)
[2017-09-28] MEDS: FAMOTIDINE 20 MG TABLET PO SCH (10:48)
[2017-09-28] MEDS: FUROSEMIDE 40 MG TABLET PO SCH ×2 (10:48→18:16)
[2017-09-28] MEDS: POLYETHYLENE GLYCOL 3350 POWDER 17 GM/1 PACKET PO SCH (10:49)
[2017-09-28] MEDS: SERTRALINE HCL 50 MG TABLET PO SCH (10:49)
[2017-09-28] MEDS: MULTIVITAMIN TABLET PO SCH (10:50)
[2017-09-28] MEDS: PREDNISONE 20 MG TABLET PO SCH (10:50)
[2017-09-28] MEDS: POTASSIUM CHLORIDE 20 MEQ/15 ML UDCUP PO SCH (10:50)
--- NOTE | 2017-09-28 15:02 | PDOC TRANSFER SUMMARY ---
General - Admit/Disc Date/PCP Admission Date/Primary Care Provider: 09/18/17 12:03 Discharge Date: 09/28/17 - Discharge Diagnosis (1) Cellulitis of both feet Is this a current diagnosis for this admission?: Yes (2) Occlusion of right subclavian artery Is this a current diagnosis for this admission?: Yes (3) Blisters of multiple sites Is this a current diagnosis for this admission?: Yes (4) Bullous pemphigoid Is this a current diagnosis for this admission?: Yes (5) Erythema intertrigo Is this a current diagnosis for this admission?: Yes - Additional Information Home Medications: RX: Acetaminophen [Tylenol] 325 mg PO Q4HP PRN 09/18/17 RX: Acetaminophen [Tylenol] 650 mg PO Q4HP PRN 09/18/17 RX: Apixaban [Eliquis 5 mg Tablet] 5 mg PO Q12@0800,2000 09/18/17 RX: Aspirin [Aspirin 81 mg Chewable Tablet] 81 mg PO DAILY 09/18/17 RX: Atorvastatin Calcium [Lipitor 10 mg Tablet] 10 mg PO QHS 09/18/17 RX: Budesonide/Formoterol Fumarate [Symbicort 160-4.5 Mcg Inhaler] 2 puff IH BID @1000,1600 09/18/17 RX: Cholecalciferol (Vitamin D3) [Vitamin D3 400 Unit Tablet] 400 unit PO DAILY 09/18/17 RX: Furosemide [Lasix 40 mg Tablet] 40 mg PO BID@1000,1600 09/18/17 RX: Levocetirizine Dihydrochloride [Xyzal] 2.5 mg PO DAILYP PRN 09/18/17 RX: Multivitamin [Tab-A-Melanie (Multiple Vitamin) Tablet] 1 tab PO DAILY 09/18/17 RX: Olopatadine HCl [Patanol 0.1% Oph Soln 5 ml] 1 drop OU BID@0800,1600 RX: Omeprazole 20 mg PO DAILY@0630 09/18/17 RX: Polyethylene Glycol 3350 [Miralax Powder 17 gm/Packet] 1 packet PO DAILY RX: Potassium Chloride [Klor-Con M20] 40 meq PO DAILY 09/18/17 RX: Sertraline HCl [Zoloft] 100 mg PO DAILY 09/18/17 RX: Timolol Maleate 10 mg PO Q12 09/18/17 RX: Doxycycline Hyclate [Vibramycin] 100 mg PO BID@0800,1999 #14 09/28/17 RX: Prednisone [Deltasone 20 mg Tablet] 10 mg PO DAILY #30 tablet 09/28/17 History of Present Illness Admission Date/PCP: 09/18/17 12:03 History of Present Illness: GIO DONNELLY is a 76 year old female she was admitted when she presented to the emergency room from a retirement home for evaluation of bullous eruption of the sole of both feet. Hospital Course Hospital Course: She has bullous eruption affecting multiple sites of the skin including the sole of both feet ,the torso, she underwent debridement of the bullous/blister of the sole of both feet there was associated cellulitis, she was treated with IV antibiotic clindamycin. The bullous eruption was consistent with bullous pemphigoid disease, she was treated with IV Solu-Medrol there was dramatic improvement . She has a history of occlusion of the right subclavian artery presently on Eliquis for that. Patient is nonambulatory, she has lower extremity weakness MRI brain was done to rule out a stroke, his stroke was ruled out, she stated that she had poliomyelitis when she was a child Physical Exam Vital Signs: Temp Pulse Resp BP Pulse Ox 98.1 F 92 20 145/83 H 92 09/28/17 11:16 09/28/17 11:39 09/28/17 11:39 09/28/17 11:16 09/28/17 11:39 Intake & Output 09/27/17 09/28/17 09/29/17 06:59 06:59 06:59 Intake Total 1340 976 Balance 1340 976 Weight 100.1 kg General appearance: PRESENT: no acute distress Eye exam: PRESENT: PERRLA Respiratory exam: PRESENT: clear to auscultation jacinto Cardiovascular exam: PRESENT: +S1, +S2 GI/Abdominal exam: PRESENT: soft Neurological exam: PRESENT: alert Results Laboratory Results: 09/22/17 12:49 09/22/17 12:49 Impressions: Pelvis Ultrasound 09/23/17 05:59 IMPRESSION: Limited study. No adnexal mass. Head MRI 09/25/17 00:00 IMPRESSION: ATROPHY AND CHRONIC MICRO-VASCULAR ISCHEMIC CHANGES. OTHERWISE NORMAL MRI OF THE BRAIN WITHOUT INTRAVENOUS GADOLINIUM CONTRAST. EVIDENCE OF ACUTE STROKE: NO. Qualifiers - * PATIENT BEING DISCHARGED WITH ANY OF THE FOLLOWING DIAGNOSIS: No
[2017-09-28 20:48] VITALS: BP 150/42
== END 2017-09-28 20:59 | DRG 596 ==
LOC: ER 10:16 → EH 12:03 → 4W 14:43
PROVIDERS: ADMIT Internal Medicine; ATTEND Internal Medicine
PROC: 0HBNXZZ Excision of Left Foot Skin, External Approach (ICD-10-PCS; principal; 2017-09-18)
PROC: 0HBMXZZ Excision of Right Foot Skin, External Approach (ICD-10-PCS; 2017-09-18)
DX: L12.0 Bullous pemphigoid (principal); L03.116 Cellulitis of left lower limb; Z68.41 Body mass index [BMI] 40.0-44.9, adult; L03.115 Cellulitis of right lower limb; L30.4 Erythema intertrigo; I11.0 Hypertensive heart disease with heart failure; B35.1 Tinea unguium; I50.9 Heart failure, unspecified; E66.01 Morbid (severe) obesity due to excess calories; N93.9 Abnormal uterine and vaginal bleeding, unspecified; E78.5 Hyperlipidemia, unspecified; Z79.02 Long term (current) use of antithrombotics/antiplatelets; J44.9 Chronic obstructive pulmonary disease, unspecified; M19.90 Unspecified osteoarthritis, unspecified site; F32.9 Major depressive disorder, single episode, unspecified; Z86.59 Personal history of other mental and behavioral disorders; Z85.3 Personal history of malignant neoplasm of breast; Z79.82 Long term (current) use of aspirin; Z79.899 Other long term (current) drug therapy; Z86.718 Personal history of other venous thrombosis and embolism; Z86.12 Personal history of poliomyelitis
CPT/HCPCS: 36415; 70551; 76856; 80048; 80053; 82550; 82962; 85025; 85652; 86140; 87040; 87070; 87075; 87077; 87186; 87205; 94640; 96365; 96375; 99285; 99152; J1170; J1200; J1815; J1885; J2060; J2250; J2930; J3490; J7512; J7620

== ENCOUNTER → 2017-10-20 | Outpatient (CLI) | payer MEDICARE, MEDICAID ==
--- NOTE | 2017-10-20 15:41 | RADIOLOGY REPORT (SQ) ---
EXAM DESCRIPTION: MRI LUMBAR SPINE WITHOUT COMPLETED DATE/TIME: 10/20/2017 10:39 am REASON FOR STUDY: MUSCLE WEAKENESS (GENERALIZED)/DIFFICULTY IN WALKING R26.2 DIFFICULTY IN WALKING, NOT ELSEWHERE CLASSIFIED COMPARISON: CT abdomen pelvis 11/12/2009, 02/04/2011 TECHNIQUE: Sagittal and Axial imaging includes T1, T2, STIR and gradient echo sequences. Coronal T2/ HASTE imaging. LIMITATIONS: None. FINDINGS: VISUALIZED UPPER ABDOMEN: Limited evaluation. No acute or suspicious findings suggested. SEGMENTATION: No transitional anatomy. The lowest well-developed disc space is labeled L5-S1. ALIGNMENT: Convex leftward lumbar curvature VERTEBRAE: Chronic inferior endplate depression with Schmorl's node and 25% loss of height at the T12 level. BONE MARROW: No marrow signal abnormalities worrisome for radiographically occult fracture or aggress john marrow replacement process. Fatty degenerative endplate changes are present at L2-3. DISC SIGNAL: Diffuse decreased T2 weighted intervertebral disc signal. High-grade disc space loss of height at L2-3 POSTERIOR ELEMENTS: Generally intact. No pars defect evident. HARDWARE: None in the spine. CORD AND CONUS: Normal in size and signal intensity. Conus at the L1 level. SOFT TISSUES: No aortic aneurysm seen. No bulky retroperitoneal adenopathy or mass. No paraspinal mas s or fluid. T10-11: Mild bilateral facet hypertrophy. No central or foraminal encroachment. T11-12: Mild bilateral facet hypertrophy. No central or foraminal encroachment. T12-L1: Mild posterior disc bulging. Mild bilateral facet and ligament hypertrophy. No significant central or foraminal encroachment. L1-L2: Mild posterior disc bulging, moderate bilateral facet and ligament hypertrophy. No central st enosis. Mild bilateral foraminal narrowing without exiting L1 impingement L2-L3: Broad diffuse posterior disc bulge and bony spurring is present. Moderate bilateral facet and ligament hypertrophy. Moderate central canal stenosis is present with partial effacement of the CSF around the lumbar nerve roots. There is high-grade right foraminal stenosis with effacement of the fat around the exiting right L2 nerve root. Mild left foraminal narrowing without exiting left L2 ne rve root impingement. L3-L4: Broad diffuse posterior disc bulging with small central disc protrusion, moderate bilateral fa cet and ligament hypertrophy cause moderate central canal narrowing with partial effacement of the CS F around the lumbar nerve roots. There is moderate bilateral foraminal narrowing with partial efface ment of the fat around the exiting L3 nerve roots bilaterally. L4-L5: Minimal grade 1 anterolisthesis of L4 over L5, broad diffuse disc bulge and bony spurring and bulky bilateral facet and ligament hypertrophy cause moderate central canal stenosis with partial eff acement of the CSF around the lumbar nerve roots. There is mild right and left foraminal narrowing w ithout exiting L4 nerve root impingement. L5-S1: Minimal posterior disc bulging, moderate bilateral facet hypertrophy. No central stenosis. M ild bilateral foraminal narrowing without exiting L5 nerve root impingement. SACRUM: Visualized upper sacrum intact. OTHER: No other significant findings. IMPRESSION: Multilevel central stenosis TECHNICAL DOCUMENTATION: JOB ID: [id number] [employer]- All Rights Reserved Reading location - IP/workstation name: [email or web address]
== END ==
LOC: RAD 09:52
PROVIDERS: ATTEND Internal Medicine
DX: M48.061 Spinal stenosis, lumbar region without neurogenic claudication (principal); M62.81 Muscle weakness (generalized); R26.2 Difficulty in walking, not elsewhere classified
CPT/HCPCS: 72148

== ENCOUNTER 2018-03-01 09:17 | Day surgery (SDC) | payer MEDICARE, MEDICAID ==
[~2018-03-01 09:17] MED LIST: CHONDR SU A NA/HYALUR INTRAOC KIT (SURGICARE) ONE; EPINEPHRINE INJ/PF 1 MG/1 ML AMPULE ONE; KETOROLAC TROMETHAMINE 0.45% 4 DROP/0.4 ML DROPERETTE OS PRN; LIDOCAINE 1% INJ-PF (10 MG/ML) 30 ML SDV ONE; TRYPAN BLUE 0.06 % OPH SOLN 0.5 ML DISP.SYRIN ONE
[2018-03-01] MEDS: TETRACAINE HCL 0.5% OPH SOLN 0.6 ML DROPERETTE OS PRN ×3 (10:11→10:43)
[2018-03-01] MEDS: CYCLOPENTOLATE 0.2%/PHENYLEPHRINE 1% OPH SOLN 2 ML OS PRN ×3 (10:12→10:38)
[2018-03-01] MEDS: TROPICAMIDE 1% OPH SOLN 3 ML OS PRN ×3 (10:12→10:38)
[2018-03-01] MEDS: BESIFLOXACIN HCL 0.6% OPH SUSP 5 ML BOTTLE OS PRN ×4 (10:12→11:11)
[2018-03-01] MEDS ORDERED: ALBUTEROL SULFATE 0.083% NEB 2.5 MG/3 ML AMPUL NEB ONE (10:32)
[2018-03-01] MEDS ORDERED: MIDAZOLAM 2 MG/2 ML INJ ONE (10:40)
[2018-03-01] MEDS: TOBRAMYCIN SULFATE/DEXAMETH OPH OINTMENT 3.5 GM ONE ×2 (11:11)
== END 2018-03-01 12:09 | disposition home or self-care (01) ==
LOC: SC 09:17
PROVIDERS: ATTEND Ophthalmology
DX: H25.12 Age-related nuclear cataract, left eye (principal); F17.210 Nicotine dependence, cigarettes, uncomplicated; J44.9 Chronic obstructive pulmonary disease, unspecified; K21.9 Gastro-esophageal reflux disease without esophagitis; E78.00 Pure hypercholesterolemia, unspecified; I11.0 Hypertensive heart disease with heart failure; I50.9 Heart failure, unspecified; Z85.3 Personal history of malignant neoplasm of breast; Z79.51 Long term (current) use of inhaled steroids; Z79.899 Other long term (current) drug therapy; Z88.0 Allergy status to penicillin; Z88.8 Allergy status to other drugs, medicaments and biological substances; Z79.82 Long term (current) use of aspirin
CPT/HCPCS: 66984; V2632; J2250; J3490 ×4; A9270 ×2; J0171; 142

== ENCOUNTER 2018-03-22 08:27 | Day surgery (SDC) | payer MEDICARE, MEDICAID ==
[~2018-03-22 08:27] MED LIST changes: +KETOROLAC TROMETHAMINE 0.45% 4 DROP/0.4 ML DROPERETTE OD PRN; -KETOROLAC TROMETHAMINE 0.45% 4 DROP/0.4 ML DROPERETTE OS PRN; -TRYPAN BLUE 0.06 % OPH SOLN 0.5 ML DISP.SYRIN ONE
[2018-03-22] MEDS ORDERED: ALBUTEROL SULFATE 0.083% NEB 2.5 MG/3 ML AMPUL NEB ONE (08:54)
[2018-03-22] MEDS: TETRACAINE HCL 0.5% OPH SOLN 0.6 ML DROPERETTE OD PRN ×3 (08:54→09:35)
[2018-03-22] MEDS: TROPICAMIDE 1% OPH SOLN 3 ML OD PRN ×3 (08:55→09:18)
[2018-03-22] MEDS: CYCLOPENTOLATE 0.2%/PHENYLEPHRINE 1% OPH SOLN 2 ML OD PRN ×3 (08:55→09:18)
[2018-03-22] MEDS: BESIFLOXACIN HCL 0.6% OPH SUSP 5 ML BOTTLE OD PRN ×4 (08:56→09:55)
[2018-03-22] MEDS ORDERED: FENTANYL CITRATE INJ/PF 100 MCG/2 ML AMPUL ONE (09:15)
[2018-03-22] MEDS ORDERED: MIDAZOLAM 2 MG/2 ML INJ ONE (09:15)
[2018-03-22] MEDS: TOBRAMYCIN SULFATE/DEXAMETH OPH OINTMENT 3.5 GM ONE ×2 (09:48→09:55)
== END 2018-03-22 11:52 ==
LOC: SC 08:27
PROVIDERS: ATTEND Ophthalmology
DX: H25.11 Age-related nuclear cataract, right eye (principal); Z98.42 Cataract extraction status, left eye; F17.210 Nicotine dependence, cigarettes, uncomplicated; J44.9 Chronic obstructive pulmonary disease, unspecified; I10 Essential (primary) hypertension; E78.00 Pure hypercholesterolemia, unspecified; K21.9 Gastro-esophageal reflux disease without esophagitis; I11.0 Hypertensive heart disease with heart failure; I50.9 Heart failure, unspecified; Z85.3 Personal history of malignant neoplasm of breast; Z79.51 Long term (current) use of inhaled steroids; Z79.899 Other long term (current) drug therapy; Z79.891 Long term (current) use of opiate analgesic; Z88.0 Allergy status to penicillin; Z88.8 Allergy status to other drugs, medicaments and biological substances
CPT/HCPCS: 66984; V2632; J2250; J3490 ×3; A9270 ×2; J0171; 142; J3010

== ENCOUNTER 2018-06-09 15:52 | Emergency (ER) | payer MEDICARE, MEDICAID ==
--- NOTE | 2018-06-09 16:26 | ER Document Report ---
ED Respiratory Problem - General Chief Complaint: Breathing Difficulty Stated Complaint: SHORTNESS OF BREATH Time Seen by Provider: 06/09/18 16:01 Mode of Arrival: Stretcher Information source: Patient Notes: Chief complaint: Shortness of breath History of complain: 77 [facility] here because of shortness of breath cough and wheezing on and off. With a history of COPD and CHF. They noted today. Patient is nonambulatory largely bedbound., Also complain of lower extremity swelling due to chronic CHF. Did not notice any fever. No abdominal pain nausea vomiting Onset: As above Duration: Since last 2 days Severity: Moderate Quality: Difficulty in breathing Context: COPD Exacerbating factor and relieving factors: Exertion REVIEW OF SYSTEMS: CONSTITUTIONAL : Denies fever, chills, or sweats. Denies recent illness. EENT: Denies eye, ear, throat, or mouth pain or symptoms. Denies nasal or sinus congestion or discharge. Denies throat, tongue, or mouth swelling or difficulty swallowing. CARDIOVASCULAR: Denies chest pain. Denies palpitations or racing or irregular heart beat. Denies ankle edema. RESPIRATORY: ROINTESTINAL: Denies abdominal pain or distention. Denies nausea, vomiting, or diarrhea. Denies blood in vomitus, stools, or per rectum. Denies black, tarry stools. Denies constipation. GENITOURINARY: Denies difficulty urinating, painful urination, burning, frequency, blood in urine, or discharge. MUSCULOSKELETAL: Denies back or neck pain or stiffness. Denies joint pain or swelling. SKIN: Denies rash, lesions or sores. HEMATOLOGIC : Denies easy bruising or bleeding. LYMPHATIC: Denies swollen, enlarged glands. NEUROLOGICAL: Denies confusion or altered mental status. Denies passing out or loss of consciousness. Denies dizziness or lightheadedness. Denies headache. Denies weakness or paralysis or loss of use of either side. Denies problems with gait or speech. Denies sensory loss, numbness, or tingling. Denies seizures. PSYCHIATRIC: Denies anxiety or stress. Denies depression, suicidal ideation, or homicidal ideation. ALL OTHER SYSTEMS REVIEWED AND NEGATIVE. Dictation was performed using [employer] voice recognition software PHYSICAL EXAMINATION: GENERAL: Morbid obesity, seems to be in mild to moderate respiratory discomfort. HEAD: Atraumatic, normocephalic. EYES: Pupils equal round and reactive to light, extraocular movements intact, sclera anicteric, conjunctiva are normal. ENT: Nares patent, oropharynx clear without exudates. Moist mucous membranes. NECK: Normal range of motion, supple without lymphadenopathy LUNGS: Breath sounds .Distant. Could not hear any wheezes rales or rhonchi. HEART: Regular rate and rhythm without murmurs ABDOMEN: Soft, nontender, nondistended abdomen. No guarding, no rebound. No masses appreciated. Musculoskeletal: Bilateral lower leg shows chronic stasis dermatosis with erythema but is not warm or tender to touch. NEUROLOGICAL: Cranial nerves grossly intact. Normal speech, normal gait. Normal sensory, motor exams PSYCH: Normal mood, normal affect. SKIN: Warm, Dry, normal turgor, no rashes or lesions noted. TRAVEL OUTSIDE OF THE [place] IN LAST 30 DAYS: No - HPI Notes: 06/09/18 15:11 Dictated - Related Data Allergies/Adverse Reactions: lisinopril [Lisinopril] Allergy (Verified 06/09/18 16:07) Penicillins Allergy (Verified 06/09/18 16:07) unknown Past Medical History - Social History Smoking Status: Former Smoker Frequency of alcohol use: Rare Drug Abuse: None Lives with: [facility] Family History: None, Reviewed & Not Pertinent - Past Medical History Cardiac Medical History: Reports: Hx Hypertension Denies: Hx Atrial Fibrillation, Hx Congestive Heart Failure, Hx Coronary Artery Disease, Hx DVT, Hx Heart Attack, Hx Hypercholesterolemia, Hx Peripheral Vascular Disease, Hx Pulmonary Embolism Pulmonary Medical History: Reports: Hx COPD Denies: Hx Asthma, Hx Bronchitis, Hx Pneumonia Neurological Medical History: Denies: Hx Cerebrovascular Accident, Hx Seizures Renal/ Medical History: Denies: Hx Peritoneal Dialysis Malignancy Medical History: Reports: Hx Breast Cancer GI Medical History: Reports: Hx Hiatal Hernia. Denies: Hx Hepatitis, Hx Ulcer Musculoskeletal Medical History: Denies Hx Arthritis Psychiatric Medical History: Reports: Hx Depression, Hx Schizophrenia Infectious Medical History: Denies: Hx Hepatitis Past Surgical History: Reports: Hx Bowel Surgery - umbilical hernia, Hx Breast Surgery, Hx Herniorrhaphy. Denies: Hx Mastectomy, Hx Open Heart Surgery, Hx Pacemaker - Immunizations Hx Diphtheria, Pertussis, Tetanus Vaccination: - unknown Review of Systems - Review of Systems Notes: 06/09/18 15:11 Dictated Physical Exam - Vital signs Vitals: Temp Resp Pulse Ox 98.5 F 23 H 89 L 06/09/18 16:13 06/09/18 16:13 06/09/18 16:13 - Notes Notes: Dictated Course - Vital Signs Vital signs: Temp Pulse Resp BP Pulse Ox 98.5 F 20 142/54 H 95 06/09/18 16:13 06/09/18 18:01 06/09/18 18:01 06/09/18 18:01 - Laboratory Result Diagrams: 06/09/18 16:33 06/09/18 17:38 Laboratory results interpreted by me: 06/09/18 06/09/18 16:33 17:38 WBC 11.0 H MCH 26.2 L MCHC 31.7 L RDW 17.0 H Seg Neutrophils % 88.9 H Lymphocytes % 7.8 L Monocytes % 2.3 L Absolute Neutrophils 9.8 H Carbon Dioxide 33 H BUN 21 H Glucose 194 H Creatine Kinase < 20 L - Diagnostic Test Radiology reviewed: Reports reviewed - Chest x-ray reported by radiologist as no acute finding - EKG Interpretation by Me EKG shows normal: Sinus rhythm - Sinus rhythm at the rate of 66 bpm normal axis no acute ST elevation ST depression T wave inversion noted. Discharge - Discharge Clinical Impression: Bronchitis COPD (chronic obstructive pulmonary disease) Qualifiers: COPD type: chronic bronchitis Chronic bronchitis type: mucopurulent Qualified Code(s): J41.1 - Mucopurulent chronic bronchitis Condition: Fair Disposition: HOME, SELF-CARE Instructions: Bronchitis With Bronchospasm (Wheezing) ([facility]) Referrals: BELEM NIELSEN MD [Primary Care Provider] - Follow up as needed
--- NOTE | 2018-06-09 16:28 | RADIOLOGY REPORT (SQ) ---
EXAM DESCRIPTION: CHEST SINGLE VIEW COMPLETED DATE/TIME: 06/09/2018 4:10 pm REASON FOR STUDY: sob COMPARISON: 07/09/2014. EXAM PARAMETERS: NUMBER OF VIEWS: One view. TECHNIQUE: Single frontal radiographic view of the chest acquired. RADIATION DOSE: NA LIMITATIONS: None. FINDINGS: LUNGS AND PLEURA: No opacities, masses or pneumothorax. No pleural effusion. MEDIASTINUM AND HILAR STRUCTURES: No masses. Contour normal. HEART AND VASCULAR STRUCTURES: Mild cardiomegaly. Normal vasculature. BONES: No acute findings. HARDWARE: None in the chest. OTHER: No other significant finding. IMPRESSION: MILD CARDIOMEGALY. NO ACUTE RADIOGRAPHIC FINDING IN THE CHEST. TECHNICAL DOCUMENTATION: JOB ID: [id number] [employer]- All Rights Reserved Reading location - IP/workstation name: [email or web address]
[2018-06-09 16:58] LABS: ABSOLUTE BASOPHILS # (AUTO) 0.1 10^3/uL (0.0-0.2); ABSOLUTE LYMPHOCYTES (AUTO) 0.9 10^3/uL (0.5-4.7); ABSOLUTE MONOCYTES (AUTO) 0.3 10^3/uL (0.1-1.4); ABSOLUTE NEUT (AUTO) 9.8 10^3/uL (1.7-8.2); BASOPHILS % (AUTO) 0.6 % (0-2); EOSINOPHILS % (AUTO) 0.4 % (0-6); HEMOGLOBIN 12.7 g/dL (12.0-15.5); LYMPHOCYTES % (AUTO) 7.8 % (13-45); MEAN CORPUSCULAR HEMOGLOBIN 26.2 pg (27.0-33.4); MEAN CORPUSCULAR HGB CONC 31.7 g/dL (32.0-36.0); MEAN CORPUSCULAR VOLUME 83 fl (80-97); MONOCYTES % (AUTO) 2.3 % (3-13); PLATELET COUNT 251 10^3/uL (150-450); RED BLOOD COUNT 4.85 10^6/uL (3.72-5.28); SEGMENTED NEUTROPHILS % (AUTO) 88.9 % (42-78); TOTAL CELLS COUNTED % (AUTO) 100 %
--- NOTE | 2018-06-09 17:40 | EKG REPORT ---
SEVERITY:- NORMAL ECG - SINUS RHYTHM : Confirmed by: Carlitos Richey MD 09-Jun-2018 17:39:01
[2018-06-09 18:14] LABS: ALANINE AMINOTRANSFERASE 44 U/L (9-52); ALBUMIN 3.8 g/dL (3.5-5.0); ALKALINE PHOSPHATASE 118 U/L (38-126); ANION GAP 7 (5-19); ASPARTATE AMINO TRANSFERASE 28 U/L (14-36); BILIRUBIN,DIRECT 0.2 mg/dL (0.0-0.4); BILIRUBIN,TOTAL 0.4 mg/dL (0.2-1.3); BLOOD UREA NITROGEN 21 mg/dL (7-20); CALCIUM 9.1 mg/dL (8.4-10.2); CARBON DIOXIDE 33 mmol/L (22-30); CHLORIDE 100 mmol/L (98-107); GLUCOSE 194 mg/dL (75-110); SODIUM 139.5 mmol/L (137-145); TOTAL PROTEIN 6.4 g/dL (6.3-8.2)
[2018-06-09 18:17] LABS: CREATINE KINASE < 20 U/L (30-135)
[2018-06-09 18:26] LABS: CREATINE KINASE MB 0.36 ng/mL (<4.55)
[2018-06-09 18:28] LABS: TROPONIN I < 0.012 ng/mL
[2018-06-09 21:15] VITALS: BP 127/63
== END 2018-06-09 20:30 | disposition home or self-care (01) ==
LOC: ER 15:52
DX: J44.9 Chronic obstructive pulmonary disease, unspecified (principal); I11.0 Hypertensive heart disease with heart failure; I50.9 Heart failure, unspecified; R06.02 Shortness of breath; E66.01 Morbid (severe) obesity due to excess calories; L98.8 Other specified disorders of the skin and subcutaneous tissue; L53.9 Erythematous condition, unspecified; Z74.01 Bed confinement status; Z88.8 Allergy status to other drugs, medicaments and biological substances; Z88.0 Allergy status to penicillin; Z87.891 Personal history of nicotine dependence; Z85.3 Personal history of malignant neoplasm of breast
CPT/HCPCS: 36415; 71045; 80053; 82550; 82553; 84484; 85025; 93005; 93010; 99285

== ENCOUNTER → 2018-08-02 | Outpatient (CLI) | payer MEDICARE, MEDICAID | LOC: WI 09:30 | PROVIDERS: ATTEND Family Medicine Geriatric Medicine | DX: N63.10 Unspecified lump in the right breast, unspecified quadrant (principal); Z53.8 Procedure and treatment not carried out for other reasons ==

== ENCOUNTER → 2018-09-07 | Outpatient (CLI) | payer MEDICARE, MEDICAID ==
--- NOTE | 2018-09-07 10:41 | WOMENS IMAGING REPORT ---
EXAM DESCRIPTION: BILAT SCREENING MAMMO W/CAD COMPLETED DATE/TIME: 09/07/2018 9:51 am REASON FOR STUDY: Z12.31 ROUTINE BILATERAL SCREENING Z12.31 ENCNTR SCREEN MAMMOGRAM FOR MALIGNANT N EOPLASM OF MARLENE Z85.3 PERSONAL HISTORY OF MALIGNANT NEOPLASM OF BREAST COMPARISON: 2010, 2015, 2016 TECHNIQUE: Standard craniocaudal and mediolateral oblique views of each breast recorded using digita l acquisition. LIMITATIONS: Difficulty positioning. FINDINGS: Findings present which are benign by mammographic criteria. No suspicious masses, calcifi cations or architectural distortion. Pertinent benign findings: Stable calcifications. Read with the assistance of CAD. .[facility] - R2 [employer] Version 1.3 .[facility] - R2 C[employer] Version 2.1 .[facility] - R2 [employer] Version 2.4 .[facility] - R2 C[employer] Version 2.4 .[facility] - R2 [employer] Version 9.2 Benign mammographic findings may include one or more of the following: Smooth masses, popcorn/rim/co arse calcifications, asymmetries, post-procedure changes, and lesions with long-standing stability. IMPRESSION: BENIGN MAMMOGRAPHIC FINDINGS. BIRADS 2 BREAST DENSITY: b. There are scattered areas of fibroglandular density. BIRAD: 2 BENIGN FINDING(S) RECOMMENDATION: ROUTINE SCREENING COMMENT: The patient has been notified of the results by letter per SA requirements. Additional no tification policies are in place for contacting patient with suspicious or incomplete findings. Quality ID #[id number]: The [employer] recommends an annual screening mammogram for women aged 40 years or over. This facility utilizes a reminder system to ensure that all patients receive reminder letters, and/or direct phone calls for appointments. This includes reminders for routine scr eening mammograms, diagnostic mammograms, or other Breast Imaging Interventions when appropriate. Th is patient will be placed in the appropriate reminder system. The [employer] (ACR) has developed recommendations for screening MRI of the breast s in certain patient populations, to be used in conjunction with mammography. Breast MRI surveillanc e may be appropriate for women with more than 20% lifetime risk of developing breast cancer as deter mined by genetic testing, significant family history of the disease, or history of mantle radiation f or Hodgkins Disease. ACR Practice Guidelines 2008. TECHNICAL DOCUMENTATION: FINDING NUMBER: (1) ASSESSMENT: (1) JOB ID: [id number] [employer]- All Rights Reserved Reading location - IP/workstation name: [email or web address]
== END ==
LOC: WI 09:09
PROVIDERS: ATTEND Family Medicine Geriatric Medicine
DX: Z12.31 Encounter for screening mammogram for malignant neoplasm of breast (principal); Z85.3 Personal history of malignant neoplasm of breast
CPT/HCPCS: 77067

== ENCOUNTER 2019-03-02 19:10 | Emergency (ER) | payer MEDICARE, MEDICAID ==
[2019-03-02] MEDS ORDERED: MORPHINE SULFATE 10 MG/ML INJ IV ONE (20:31)
--- NOTE | 2019-03-02 20:37 | ER Document Report ---
ED General - General Chief Complaint: Abdominal Pain Stated Complaint: ABDOMINAL PAIN Time Seen by Provider: 03/02/19 20:10 Primary Care Provider: BELEM NIELSEN MD [Primary Care Provider] - Follow up as needed TRAVEL OUTSIDE OF THE [place] IN LAST 30 DAYS: No - HPI Context: This is a 78 year old female who presents today with a complaint of LUQ pain since yesterday. Pt describes intermittent sharp pain worse with bending. She states that her left breast is heavy and when she bends over, it causes her LUQ to hurt. Pain is intermittent, lasting about 1 minute an dis only when she bends over that it comes. She denies any flank pain. She has a history of breast cancer and is concerned that the cancer is now back in her abdomen. No cardiopulmonary symptoms. She denies any fever or chills. Pain is worse with bending over. She denies any trauma. - Related Data Allergies/Adverse Reactions: lisinopril [Lisinopril] Allergy (Verified 06/09/18 16:07) Penicillins Allergy (Verified 06/09/18 16:07) unknown Past Medical History - Social History Smoking Status: Former Smoker Chew tobacco use (# tins/day): No Frequency of alcohol use: None Drug Abuse: None Family History: None, Reviewed & Not Pertinent Patient has suicidal ideation: No Patient has homicidal ideation: No - Past Medical History Cardiac Medical History: Reports: Hx Hypertension Denies: Hx Atrial Fibrillation, Hx Congestive Heart Failure, Hx Coronary Artery Disease, Hx DVT, Hx Heart Attack, Hx Hypercholesterolemia, Hx Peripheral Vascular Disease, Hx Pulmonary Embolism Pulmonary Medical History: Reports: Hx COPD Denies: Hx Asthma, Hx Bronchitis, Hx Pneumonia Neurological Medical History: Denies: Hx Cerebrovascular Accident, Hx Seizures Renal/ Medical History: Denies: Hx Peritoneal Dialysis Malignancy Medical History: Reports: Hx Breast Cancer GI Medical History: Reports: Hx Hiatal Hernia. Denies: Hx Hepatitis, Hx Ulcer Musculoskeletal Medical History: Denies Hx Arthritis Psychiatric Medical History: Reports: Hx Depression, Hx Schizophrenia Infectious Medical History: Denies: Hx Hepatitis Past Surgical History: Reports: Hx Bowel Surgery - umbilical hernia, Hx Breast Surgery, Hx Herniorrhaphy. Denies: Hx Mastectomy, Hx Open Heart Surgery, Hx Pacemaker - Immunizations Hx Diphtheria, Pertussis, Tetanus Vaccination: - unknown Review of Systems - Review of Systems Constitutional: Fever Cardiovascular: denies: Chest pain, Palpitations Respiratory: denies: Cough Gastrointestinal: Abdominal pain. denies: Nausea, Vomiting Genitourinary: denies: Burning, Dysuria, Flank pain Neurological/Psychological: denies: Headaches -: Yes All other systems reviewed and negative Physical Exam - Vital signs Vitals: Temp Pulse Resp BP Pulse Ox 98.2 F 73 20 120/82 95 03/02/19 19:23 03/02/19 19:23 03/02/19 19:23 03/02/19 19:23 03/02/19 19:23 - General General appearance: Appears well, Alert - Respiratory Respiratory status: No respiratory distress Chest status: Nontender Breath sounds: Normal Chest palpation: Normal - Cardiovascular Rhythm: Regular Heart sounds: Normal auscultation Murmur: No - Abdominal Inspection: Normal Distension: No distension Bowel sounds: Normal Tenderness: Nontender, Tender - There is LUQ tenderness to palpation. NO guarding or rebound. Organomegaly: No organomegaly - Back Back: Normal, Nontender. No: Deformity/step-off, CVA tenderness - Neurological Neuro grossly intact: Yes Cognition: Normal Orientation: AAOx4 [place] Coma Scale Eye Opening: Spontaneous [place] Coma Scale Verbal: Oriented [place] Coma Scale Motor: Obeys Commands [place] Coma Scale Total: 15 Speech: Normal Motor strength normal: LUE, RUE, LLE, RLE Sensory: Normal - Skin Skin Temperature: Warm Skin Moisture: Dry Skin Color: Normal Course - Re-evaluation Re-evalutation: 03/02/19 20:37 Differential diagnosis includes rectus muscle strain vs pancreatitis vs gastritis vs mass vs less likely SBO. NO cardiopulmonary symptoms. Doubt UTI 03/02/19 22:36 Patient reevaluated. Patient is doing well. Awaiting studies. 03/03/19 02:06 Patient reevaluated. Patient is doing better. Labs and CT reviewed. Patient has a UTI. She is hemodynamically stable. She lives in a alf facility. I think she can be managed as an outpatient. Patient counseled to return if any fever or concerns. Patient does not want to go back to the senior care . She says she does not like it there. - Vital Signs Vital signs: Temp Pulse Resp BP Pulse Ox 97.9 F 76 22 H 159/55 H 94 03/03/19 00:34 03/03/19 00:34 03/03/19 00:34 03/03/19 00:34 03/03/19 00:34 - Laboratory Result Diagrams: 03/02/19 20:00 03/02/19 20:00 Laboratory results interpreted by me: 03/02/19 03/02/19 03/03/19 20:00 20:00 00:30 WBC 14.0 H RDW 17.0 H Lymph % (Auto) 9.1 L Absolute Neuts (auto) 11.4 H Seg Neutrophils % 81.8 H Chloride 94 L Carbon Dioxide 33 H Glucose 137 H Urine Protein 30 H Urine Blood SMALL H Urine Nitrite POSITIVE H Ur Leukocyte Esterase LARGE H Urine Ascorbic Acid 20 H Discharge - Discharge Clinical Impression: Acute UTI, Kidney stone Condition: Good Disposition: HOME, SELF-CARE Instructions: Abdominal Pain ([facility]), Urinary Tract Infection ([facility]), Kidney Stone ([facility]) Additional Instructions: Return immediately if any fever, vomiting or concerns. Prescriptions: Ciprofloxacin HCl [Cipro 500 mg Tablet] 500 mg PO BID #20 tablet Oxycodone HCl/Acetaminophen [Percocet 5-325 mg Tablet] 1 tab PO ASDIR PRN #15 tab PRN Reason: Referrals: BELEM NIELSEN MD [Primary Care Provider] - 03/05/19
[2019-03-02 20:43] LABS: ABSOLUTE BASOPHILS # (AUTO) 0.1 10^3/uL (0.0-0.2); ABSOLUTE EOSINOPHILS # (AUTO) 0.3 10^3/uL (0.0-0.6); ABSOLUTE LYMPHOCYTES (AUTO) 1.3 10^3/uL (0.5-4.7); ABSOLUTE MONOCYTES (AUTO) 0.9 10^3/uL (0.1-1.4); ABSOLUTE NEUT (AUTO) 11.4 10^3/uL (1.7-8.2); BASOPHILS % (AUTO) 0.5 % (0-2); EOSINOPHILS % (AUTO) 2.2 % (0-6); HEMATOCRIT 40.2 % (36.0-47.0); HEMOGLOBIN 13.1 g/dL (12.0-15.5); LYMPHOCYTES % (AUTO) 9.1 % (13-45); MEAN CORPUSCULAR HGB CONC 32.5 g/dL (32.0-36.0); MEAN CORPUSCULAR VOLUME 83 fl (80-97); MONOCYTES % (AUTO) 6.4 % (3-13); PLATELET COUNT 230 10^3/uL (150-450); RED BLOOD COUNT 4.85 10^6/uL (3.72-5.28); SEGMENTED NEUTROPHILS % (AUTO) 81.8 % (42-78); TOTAL CELLS COUNTED % (AUTO) 100 %
[2019-03-02 21:05] LABS: ALBUMIN 3.8 g/dL (3.5-5.0); ALKALINE PHOSPHATASE 112 U/L (38-126); ANION GAP 10 (5-19); ASPARTATE AMINO TRANSFERASE 29 U/L (14-36); BILIRUBIN,DIRECT 0.3 mg/dL (0.0-0.4); BILIRUBIN,TOTAL 0.6 mg/dL (0.2-1.3); BLOOD UREA NITROGEN 14 mg/dL (7-20); CALCIUM 9.2 mg/dL (8.4-10.2); CARBON DIOXIDE 33 mmol/L (22-30); CHLORIDE 94 mmol/L (98-107); GLUCOSE 137 mg/dL (75-110); POTASSIUM 4.4 mmol/L (3.6-5.0); TOTAL PROTEIN 7.2 g/dL (6.3-8.2)
--- NOTE | 2019-03-02 22:54 | RADIOLOGY REPORT (SQ) ---
EXAM DESCRIPTION: CLINICAL HISTORY: 78 years Female, LUQ pain and tenderness COMPARISON: CT chest 08/29/2018. FINDINGS: [id number] cardiomegaly. Mildly ectatic aorta. No suspicious mediastinal widening. Mild prominence of right hilar vessels. Was present on previous CT. No obvious acute lung or pleural abnormalities. No evidence for subdiaphragmatic free air. IMPRESSION: No obvious acute findings.
--- NOTE | 2019-03-02 22:59 | RADIOLOGY REPORT (SQ) ---
CT ABDOMEN PELVIS WITH IV CONTRAST EXAM DATE: 03/02/2019 8:30 PM CDT HISTORY: Left upper quadrant pain. COMPARISON: None. TECHNIQUE: CT scan of the abdomen and pelvis was performed with IV contrast. This exam was performed according to our departmental dose-optimization program, which includes automated exposure control, adjustment of the mA and/or kV according to patient size and/or use of iterative reconstruction technique. FINDINGS: The lung bases are clear. No pleural or pericardial effusions. The liver, spleen, pancreas, gallbladder, adrenal glands, and right kidney are unremarkable. There is a staghorn calculus in the left renal sinus extending into the proximal left ureter with surrounding inflammatory stranding. No hydronephrosis is seen. Query fibroid uterus. No small bowel obstruction. The appendix is not visualized. No evidence of acute diverticulitis. No adenopathy, free fluid, or free air is identified. There are mild degenerative changes of the spine. IMPRESSION: 1. Long-standing left-sided staghorn calculus with mild surrounding inflammatory changes. 2. No hydronephrosis.
[2019-03-03] MEDS ORDERED: MORPHINE SULFATE 10 MG/ML INJ IV ONE (00:42)
[2019-03-03 00:52] LABS: APPEARANCE,URINE CLOUDY; BILIRUBIN,URINE NEGATIVE (NEGATIVE); COLOR,URINE YELLOW; GLUCOSE, URINE NEGATIVE (NEGATIVE); KETONES,URINE NEGATIVE (NEGATIVE); LEUKOCYTE ESTERASE,URINE LARGE (NEGATIVE); NITRITE,URINE POSITIVE (NEGATIVE); PROTEIN,URINE 30 mg/dL (NEGATIVE); URINE SPECIFIC GRAVITY 1.048; UROBILINOGEN,URINE NEGATIVE mg/dL (<2.0)
[2019-03-03] MEDS ORDERED: LEVOFLOXACIN 750 MG TABLET PO ONE (01:59)
[2019-03-03] MEDS ORDERED: KETOROLAC TROMETHAMINE INJ/PF 30 MG/1 ML SDV IV ONE (02:43)
[2019-03-03 03:33] VITALS: BP 148/62
== END 2019-03-03 03:32 | disposition home or self-care (01) ==
LOC: ER 19:10
DX: N39.0 Urinary tract infection, site not specified (principal); N20.0 Calculus of kidney; R10.12 Left upper quadrant pain; Z87.891 Personal history of nicotine dependence; I10 Essential (primary) hypertension; J44.9 Chronic obstructive pulmonary disease, unspecified
CPT/HCPCS: 36415; 87086; 83690; 85025; 87088; 80053; 81001; 87186; 71046; 74177; J1885; J2270 ×2; A9270; 96374; 96375; 96376; 99284

== ENCOUNTER 2019-03-12 13:52 | Emergency (ER) | payer MEDICARE, MEDICAID ==
[2019-03-12 16:31] LABS: ABSOLUTE BASOPHILS # (AUTO) 0.1 10^3/uL (0.0-0.2); ABSOLUTE EOSINOPHILS # (AUTO) 0.4 10^3/uL (0.0-0.6); ABSOLUTE LYMPHOCYTES (AUTO) 1.2 10^3/uL (0.5-4.7); ABSOLUTE MONOCYTES (AUTO) 0.8 10^3/uL (0.1-1.4); ABSOLUTE NEUT (AUTO) 9.9 10^3/uL (1.7-8.2); BASOPHILS % (AUTO) 0.6 % (0-2); EOSINOPHILS % (AUTO) 2.9 % (0-6); HEMATOCRIT 41.7 % (36.0-47.0); HEMOGLOBIN 13.6 g/dL (12.0-15.5); MEAN CORPUSCULAR HEMOGLOBIN 27.3 pg (27.0-33.4); MEAN CORPUSCULAR HGB CONC 32.6 g/dL (32.0-36.0); MEAN CORPUSCULAR VOLUME 84 fl (80-97); MONOCYTES % (AUTO) 6.7 % (3-13); PLATELET COUNT 224 10^3/uL (150-450); RED BLOOD COUNT 4.97 10^6/uL (3.72-5.28); RED CELL DISTRIBUTION WIDTH 17.1 % (11.5-14.0); SEGMENTED NEUTROPHILS % (AUTO) 79.8 % (42-78); TOTAL CELLS COUNTED % (AUTO) 100 %; WHITE BLOOD COUNT 12.4 10^3/uL (4.0-10.5)
[2019-03-12 16:47] LABS: ALKALINE PHOSPHATASE 100 U/L (38-126); ANION GAP 9 (5-19); ASPARTATE AMINO TRANSFERASE 27 U/L (14-36); BILIRUBIN,DIRECT 0.2 mg/dL (0.0-0.4); BILIRUBIN,TOTAL 0.4 mg/dL (0.2-1.3); BLOOD UREA NITROGEN 19 mg/dL (7-20); CALCIUM 9.2 mg/dL (8.4-10.2); CARBON DIOXIDE 34 mmol/L (22-30); CHLORIDE 95 mmol/L (98-107); GLUCOSE 108 mg/dL (75-110); POTASSIUM 4.4 mmol/L (3.6-5.0); TOTAL PROTEIN 7.3 g/dL (6.3-8.2)
[2019-03-12 17:48] LABS: AMORPHOUS SEDIMENT,URINE TRACE /HPF; APPEARANCE,URINE TURBID; BILIRUBIN,URINE NEGATIVE (NEGATIVE); COLOR,URINE YELLOW; GLUCOSE, URINE NEGATIVE (NEGATIVE); KETONES,URINE NEGATIVE (NEGATIVE); LEUKOCYTE ESTERASE,URINE LARGE (NEGATIVE); NITRITE,URINE NEGATIVE (NEGATIVE); PROTEIN,URINE NEGATIVE (NEGATIVE); URINE SPECIFIC GRAVITY 1.012; UROBILINOGEN,URINE NEGATIVE mg/dL (<2.0)
[2019-03-12 18:25] VITALS: BP 111/76
--- NOTE | 2019-03-12 18:29 | ER Document Report ---
ED General - General Chief Complaint: Urinary Problem Stated Complaint: BLOOD IN URINE Time Seen by Provider: 03/12/19 14:50 Primary Care Provider: BELEM NIELSEN MD [Primary Care Provider] - Follow up as needed Notes: Patient is a 78-year-old female presents to the emergency department from [facility] for blood in her urine. History is obtained from nursing staff who obtained report from EMS. Patient was recently at this facility diagnosed with a urinary tract infection and kidney stones. Was placed on Cipro. States today they noted the patient had some hematuria which is why they sent her to the emergency room. Patient has a history of dementia, anxiety, schizophrenia, depression, hypertension, CHF, COPD. Patient is unable to tell me the current date but does voice that she was at this facility recently and told she had a kidney stone. Patient is denying all complaints. Patient voices "I guess my pee had blood in it?" Patient is able to tell me she is on Cipro and states she has a long-standing history of kidney stones. Patient is denying any dysuria, abdominal pain, fevers. TRAVEL OUTSIDE OF THE [place] IN LAST 30 DAYS: No - Related Data Allergies/Adverse Reactions: lisinopril [Lisinopril] Allergy (Verified 06/09/18 16:07) Penicillins Allergy (Verified 06/09/18 16:07) unknown Past Medical History - General Information source: Patient, Transfer Record, Emergency Med Personnel - Social History Smoking Status: Unknown if Ever Smoked Chew tobacco use (# tins/day): No Frequency of alcohol use: None Drug Abuse: None Family History: None, Reviewed & Not Pertinent Patient has suicidal ideation: No Patient has homicidal ideation: No - Past Medical History Cardiac Medical History: Reports: Hx Hypertension Denies: Hx Atrial Fibrillation, Hx Congestive Heart Failure, Hx Coronary Artery Disease, Hx DVT, Hx Heart Attack, Hx Hypercholesterolemia, Hx Peripheral Vascular Disease, Hx Pulmonary Embolism Pulmonary Medical History: Reports: Hx COPD Denies: Hx Asthma, Hx Bronchitis, Hx Pneumonia Neurological Medical History: Denies: Hx Cerebrovascular Accident, Hx Seizures Renal/ Medical History: Denies: Hx Peritoneal Dialysis Malignancy Medical History: Reports: Hx Breast Cancer GI Medical History: Reports: Hx Hiatal Hernia. Denies: Hx Hepatitis, Hx Ulcer Musculoskeletal Medical History: Denies Hx Arthritis Psychiatric Medical History: Reports: Hx Depression, Hx Schizophrenia Infectious Medical History: Denies: Hx Hepatitis Past Surgical History: Reports: Hx Bowel Surgery - umbilical hernia, Hx Breast Surgery, Hx Herniorrhaphy. Denies: Hx Mastectomy, Hx Open Heart Surgery, Hx Pacemaker - Immunizations Hx Diphtheria, Pertussis, Tetanus Vaccination: - unknown Review of Systems - Review of Systems Constitutional: denies: Fever EENT: No symptoms reported Cardiovascular: No symptoms reported Respiratory: No symptoms reported Gastrointestinal: No symptoms reported Genitourinary: See HPI Female Genitourinary: No symptoms reported Musculoskeletal: No symptoms reported Skin: No symptoms reported Hematologic/Lymphatic: No symptoms reported Neurological/Psychological: See HPI Physical Exam - Notes Notes: GENERAL: Alert, interacts well. No acute distress. HEAD: Normocephalic, atraumatic. EYES: Pupils equal, round, and reactive to light. Extraocular movements intact. ENT: Oral mucosa moist, tongue midline. NECK: Full range of motion. Supple. Trachea midline. LUNGS: Clear to auscultation bilaterally, no wheezes, rales, or rhonchi. No respiratory distress. HEART: Regular rate and rhythm. No murmur ABDOMEN: Obese, soft, non-tender. Non-distended. Bowel sounds present in all 4 quadrants. EXTREMITIES: Moves all 4 extremities spontaneously. No edema, normal radial and dorsalis pedis pulses bilaterally. No cyanosis. BACK: no cervical, thoracic, lumbar midline tenderness. No saddle anesthesia, normal distal neurovascular exam. NEUROLOGICAL: Alert and oriented to herself and current location. She is unable to tell me the date. Does know most of her medical history. Normal speech. cranial nerves II through XII grossly intact PSYCH: Normal affect, normal mood. SKIN: Warm, dry, normal turgor. No rashes or lesions noted. Course - Re-evaluation Re-evalutation: 03/12/19 18:27 Laboratory 03/12/19 03/12/19 03/12/19 16:15 16:15 17:20 WBC 12.4 H RBC 4.97 Hgb 13.6 Hct 41.7 MCV 84 MCH 27.3 MCHC 32.6 RDW 17.1 H Plt Count 224 Lymph % (Auto) 10.0 L [place] % (Auto) 6.7 Eos % (Auto) 2.9 Baso % (Auto) 0.6 Absolute Neuts (auto) 9.9 H Absolute Lymphs (auto) 1.2 Absolute Monos (auto) 0.8 Absolute Eos (auto) 0.4 Absolute Basos (auto) 0.1 Seg Neutrophils % 79.8 H Sodium 138.0 Potassium 4.4 Chloride 95 L Carbon Dioxide 34 H Anion Gap 9 BUN 19 Creatinine 0.71 Est GFR ( Amer) > 60 Est GFR (MDRD) Non-Af > 60 Glucose 108 Calcium 9.2 Total Bilirubin 0.4 Direct Bilirubin 0.2 Neonat Total Bilirubin Not Reportable Neonat Direct Bilirubin Not Reportable Neonat Indirect Bili Not Reportable AST 27 ALT 19 Alkaline Phosphatase 100 Total Protein 7.3 Albumin 4.0 Urine Color YELLOW Urine Appearance TURBID Urine pH 7.0 Ur Specific [place] 1.012 Urine Protein NEGATIVE Urine Glucose (UA) NEGATIVE Urine Ketones NEGATIVE Urine Blood LARGE H Urine Nitrite NEGATIVE Urine Bilirubin NEGATIVE Urine Urobilinogen NEGATIVE Ur Leukocyte Esterase LARGE H Urine WBC (Auto) 23 Urine RBC (Auto) 62 Urine Bacteria (Auto) 1+ Squamous Epi Cells Auto 2 Amorphous Sediment Auto TRACE Urine Mucus (Auto) RARE Urine Ascorbic Acid 40 H I have checked culture results of patient's urine from recent visit. Cipro is susceptible to both bacteria grown. Patient's repeat urine does show hematuria but no obvious blood. no change in kidney function. Patient's denying any diarrhea, vaginal pain, injury. Patient's denying any abdominal pain, back pain. Patient voices she would like something to eat. Patient voices she is very excited that she is able to go home to [facility]. Discussed with patient importance of continuing taking antibiotic regimen. At this time will discharge with return precautions and follow-up recommendations. Verbal discharge instructions given a the bedside and opportunity for questions given. Medication warnings reviewed. Patient is in agreement with this plan and has verbalized understanding of return precautions and the need for primary care follow-up in the next 24-72 hours. This medical record was dictated with voice recognizing software. There may be grammatical, syntax errors that are unintended. 03/12/19 18:30 - Laboratory Result Diagrams: 03/12/19 16:15 03/12/19 16:15 Laboratory results interpreted by me: 03/12/19 03/12/19 03/12/19 16:15 16:15 17:20 WBC 12.4 H RDW 17.1 H Lymph % (Auto) 10.0 L Absolute Neuts (auto) 9.9 H Seg Neutrophils % 79.8 H Chloride 95 L Carbon Dioxide 34 H Urine Blood LARGE H Ur Leukocyte Esterase LARGE H Urine Ascorbic Acid 40 H Discharge - Discharge Clinical Impression: Hematuria Qualifiers: Hematuria type: unspecified type Qualified Code(s): R31.9 - Hematuria, unspecified Condition: Stable Disposition: HOME-SNF (ED ONLY) Instructions: Hematuria ([facility]) Additional Instructions: As we discussed you have been seen and treated in the emergency department for blood in your urine. This is unfortunately, when you have a history of kidney stones. The antibiotics appear to be working. Please make sure you continue to take them until you finish them. Please follow-up with your primary care provider in the next 24 to 48 hours. Return to the emergency room for any concerns. Referrals: BELEM NIELSEN MD [Primary Care Provider] - Follow up as needed
== END 2019-03-12 19:58 ==
LOC: ER 13:52
DX: R31.9 Hematuria, unspecified (principal); F03.90 Unspecified dementia, unspecified severity, without behavioral disturbance, psychotic disturbance, mood disturbance, and anxiety; I10 Essential (primary) hypertension; J44.9 Chronic obstructive pulmonary disease, unspecified; Z87.442 Personal history of urinary calculi; Z88.0 Allergy status to penicillin
CPT/HCPCS: 36415; 80053; 81001; 85025; 87086; 87088; 87186; 99283